=== PATIENT | male | born 1955 | race Caucasian/White ===

== ENCOUNTER 2020-06-26 14:53 | Inpatient (IN) | payer OTHER, BC, SELFPAY ==
[~2020-06-26] VITALS: Ht 167.6 cm; Wt 98.0 kg
[~2020-06-26 14:53] MED LIST: HYDR-1189 PO; LISI-219 PO; METF1000 PO; NOR10 PO; PRAV40TA63 PO; TAMS-11 PO
[2020-06-26 15:03] VITALS: BP_SYST 123
[2020-06-26] MEDS ORDERED: DULA1.5P SQ (15:33)
[2020-06-26] MEDS ORDERED: DOXA2TAB PO (15:33)
[2020-06-26] MEDS ORDERED: LISI-600 PO (15:33)
[2020-06-26] MEDS ORDERED: FLUT16SP16 NS (15:33)
[2020-06-26] MEDS ORDERED: LIP10 PO (15:33)
[2020-06-26] MEDS ORDERED: NEOM10SO7 EACH EAR (15:33)
[2020-06-26] MEDS ORDERED: PIOG30TA71 PO (15:33)
[2020-06-26] MEDS ORDERED: GLYB5TAB7 PO (15:33)
[2020-06-26] MEDS ORDERED: MYCOLOG15O TP (15:33)
[2020-06-26] MEDS ORDERED: cefTRIAXone 1 GM in D5W 50 ML IV ONE (16:30)
[2020-06-26] MEDS ORDERED: DEXAMETHASONE SOD PHOSPHATE 10 MG/ML VIAL IVP ONE (16:30)
[2020-06-26 16:49] LABS: HEMATOCRIT 42.5 % (36-54); HEMOGLOBIN 14.1 g/dL (14.0-18.0); MEAN CORPUSCULAR HEMOGLOBIN 31 pg (27-31); MEAN CORPUSCULAR HGB CONC 33 % (32-36); MEAN CORPUSCULAR VOLUME 93 fL (79.0-98.0); PLATELET COUNT (AUTO) 311 K/uL (130-430); RED BLOOD CELL COUNT(AUTO) 4.56 MIL/uL (4.2-6.2); RED CELL DISTRIBUTION WIDTH 13.3 % (9.0-15.0); WHITE BLOOD COUNT (AUTO) 8.3 K/uL (4.8-10.8)
[2020-06-26 16:50] LABS: BASOPHILS % (AUTO) 0.2 % (0.0-2.0); LYMPHOCYTES # (AUTO) 0.9 K/uL (1.0-5.5); MONOCYTES # (AUTO) 0.6 K/uL (0.0-1.0); MONOCYTES % (AUTO) 7.5 % (1.7-9.3); NEUTROPHILS # (AUTO) 6.8 K/uL (1.8-7.7); NEUTROPHILS % (AUTO) 81.3 % (40.0-70.0)
[2020-06-26 16:55] LABS: PROTHROMBIN TIME 9.8 SECS (9.5-12.5)
[2020-06-26 17:03] LABS: CALCIUM 8.3 mg/dL (8.4-11.0); CREATININE 1.64 mg/dL (0.55-1.30); POTASSIUM 3.7 mmol/L (3.5-5.1)
[2020-06-26 17:15] LABS: ALBUMIN 3.2 g/dL (3.4-4.8); TOTAL BILIRUBIN 0.4 mg/dL (0.0-1.0)
[2020-06-26] MEDS ORDERED: cefTRIAXone 1 GM VIAL ONE (17:47)
[2020-06-26] MEDS ORDERED: DEXAMETHASONE SOD PHOSPHATE 10 MG/ML VIAL ONE (17:48)
[2020-06-26 18:04] LABS: C-REACTIVE PROTEIN QUANT 15.9 mg/dL (0-0.5)
[2020-06-26] MEDS ORDERED: ACETAMINOPHEN 325 MG TABLET PO PRN (19:15)
[2020-06-26] MEDS ORDERED: PIPERACILLIN/TAZO 3.375/DEX-IS 50 ML IV ONE (19:45)
[2020-06-26] MEDS ORDERED: NYSTATIN/TRIAMCIN 15 GM TOPICAL OINTMENT TP SCH (21:00)
[2020-06-26] MEDS ORDERED: NEOMYCIN/POLYMYX B/HYDROCORTISONE 10 ML OTIC SOLUTION OT SCH (21:00)
[2020-06-26] MEDS: DOXAZOSIN MESYLATE 2 MG TABLET PO SCH (21:00)
[2020-06-26] MEDS: KCL 20 mEq in NS 1000 mL 1,000 ML IV SCH (23:28)
[2020-06-26] MEDS: DEXAMETHASONE SOD PHOSPHATE 10 MG/ML VIAL IVP SCH (23:29)
[2020-06-26] MEDS: ENOXAPARIN SODIUM 30 MG/0.3 ML SYRINGE SUBCUT SCH (23:30)
[2020-06-26] MEDS: INSULIN REGULAR, HUMAN 100 UNITS/ML, 10 ML VIAL (humuLIN R) SUBCUT PRN (23:48)
[2020-06-27] MEDS ORDERED: NACL 0.9% 1,000 ML IV ONE (00:45)
[2020-06-27] MEDS: PIPERACILLIN/TAZO 3.375/DEX-IS 50 ML IV SCH ×3 (03:07→12:06)
[2020-06-27 05:58] LABS: BASOPHILS % (AUTO) 0.2 % (0.0-2.0); HEMATOCRIT 41.7 % (36-54); HEMOGLOBIN 14.2 g/dL (14.0-18.0); LYMPHOCYTES # (AUTO) 1.9 K/uL (1.0-5.5); LYMPHOCYTES % (AUTO) 25.3 % (20.5-51.5); MEAN CORPUSCULAR HEMOGLOBIN 32 pg (27-31); MEAN CORPUSCULAR HGB CONC 34 % (32-36); MEAN CORPUSCULAR VOLUME 93 fL (79.0-98.0); MONOCYTES # (AUTO) 0.3 K/uL (0.0-1.0); MONOCYTES % (AUTO) 3.9 % (1.7-9.3); NEUTROPHILS # (AUTO) 5.3 K/uL (1.8-7.7); NEUTROPHILS % (AUTO) 70.6 % (40.0-70.0); PLATELET COUNT (AUTO) 319 K/uL (130-430); RED BLOOD CELL COUNT(AUTO) 4.48 MIL/uL (4.2-6.2); RED CELL DISTRIBUTION WIDTH 13.1 % (9.0-15.0); WHITE BLOOD COUNT (AUTO) 7.5 K/uL (4.8-10.8)
[2020-06-27 06:02] LABS: CREATININE 1.55 mg/dL (0.55-1.30); PHOSPHORUS 4.6 mg/dL (2.7-4.5); POTASSIUM 4.1 mmol/L (3.5-5.1)
[2020-06-27 07:19] LABS: C-REACTIVE PROTEIN QUANT 15.7 mg/dL (0-0.5)
[2020-06-27] MEDS: KCL 20 mEq in NS 1000 mL 1,000 ML IV SCH ×3 (07:20→21:06)
[2020-06-27 10:50] VITALS: BP_SYST 117
[2020-06-27 11:15] VITALS: BP_SYST 117
[2020-06-27] MEDS: amLODIPine BESYLATE 10 MG TABLET PO SCH (11:30)
[2020-06-27] MEDS: FLUTICASONE PROPIONATE 50 mCg/SPRAY 16 GM NS SCH (11:30)
[2020-06-27] MEDS: ATORVASTATIN 10 MG TABLET PO SCH (11:30)
[2020-06-27] MEDS: INSULIN REGULAR, HUMAN 100 UNITS/ML, 10 ML VIAL (humuLIN R) SUBCUT PRN ×3 (11:30→20:56)
[2020-06-27] MEDS: PIOGLITAZONE HCL 15 MG TABLET PO SCH (11:30)
[2020-06-27] MEDS ORDERED: PEG 400/HYPROMELLOSE/GLYCERIN 15 ML DROPS OP PRN (12:15)
[2020-06-27] MEDS ORDERED: FLU VACC QS2020-21(65UP)/PF 0.7 ML/SYRINGE I.M. PRN (13:30)
[2020-06-27 16:00] VITALS: BP_SYST 104
[2020-06-27] MEDS: cefTRIAXone 1 GM in D5W 50 ML IV SCH (18:00)
[2020-06-27 20:00] VITALS: BP_SYST 109
[2020-06-27] MEDS: AZITHROMYCIN 500 MG in NS 250 ML IV SCH (20:49)
[2020-06-27] MEDS: DEXAMETHASONE SOD PHOSPHATE 10 MG/ML VIAL IVP SCH (20:50)
[2020-06-27] MEDS: DOXAZOSIN MESYLATE 2 MG TABLET PO SCH (20:50)
[2020-06-27] MEDS: ALBUTEROL MDI INHALATION 8 GM INH INH PRN (20:52)
[2020-06-27] MEDS: ENOXAPARIN SODIUM 30 MG/0.3 ML SYRINGE SUBCUT SCH (21:00)
[2020-06-28] VITALS: BP_SYST 115
[2020-06-28 07:40] VITALS: BP_SYST 121
[2020-06-28] MEDS: INSULIN REGULAR, HUMAN 100 UNITS/ML, 10 ML VIAL (humuLIN R) SUBCUT PRN ×3 (07:45→17:54)
[2020-06-28] MEDS ORDERED: glyBURIDE 5 MG TABLET PO ONE (08:00)
[2020-06-28] MEDS: ATORVASTATIN 10 MG TABLET PO SCH (09:09)
[2020-06-28] MEDS: amLODIPine BESYLATE 10 MG TABLET PO SCH (09:09)
[2020-06-28] MEDS: PIOGLITAZONE HCL 15 MG TABLET PO SCH (09:09)
[2020-06-28] MEDS: FLUTICASONE PROPIONATE 50 mCg/SPRAY 16 GM NS SCH (09:09)
[2020-06-28] MEDS: KCL 20 mEq in NS 1000 mL 1,000 ML IV SCH ×2 (10:00→18:57)
[2020-06-28 12:00] VITALS: BP_SYST 121
[2020-06-28 16:00] VITALS: BP_SYST 112
[2020-06-28] MEDS: cefTRIAXone 1 GM in D5W 50 ML IV SCH (17:46)
[2020-06-28] MEDS: glyBURIDE 5 MG TABLET PO SCH (17:54)
[2020-06-28] MEDS: AZITHROMYCIN 500 MG in NS 250 ML IV SCH (18:57)
[2020-06-28 20:00] VITALS: BP_SYST 115
[2020-06-28] MEDS: DEXAMETHASONE SOD PHOSPHATE 10 MG/ML VIAL IVP SCH ×2 (21:43→22:54)
[2020-06-28] MEDS: DOXAZOSIN MESYLATE 2 MG TABLET PO SCH (22:00)
[2020-06-28] MEDS: ENOXAPARIN SODIUM 30 MG/0.3 ML SYRINGE SUBCUT SCH (22:00)
[2020-06-29] VITALS: BP_SYST 127
[2020-06-29] MEDS: INSULIN REGULAR, HUMAN 100 UNITS/ML, 10 ML VIAL (humuLIN R) SUBCUT PRN ×3 (06:35→16:56)
[2020-06-29 06:36] LABS: BASOPHILS % (AUTO) 0.1 % (0.0-2.0); HEMATOCRIT 37.5 % (36-54); HEMOGLOBIN 12.8 g/dL (14.0-18.0); LYMPHOCYTES # (AUTO) 0.6 K/uL (1.0-5.5); MEAN CORPUSCULAR HEMOGLOBIN 32 pg (27-31); MEAN CORPUSCULAR HGB CONC 34 % (32-36); MEAN CORPUSCULAR VOLUME 92 fL (79.0-98.0); MONOCYTES # (AUTO) 0.5 K/uL (0.0-1.0); MONOCYTES % (AUTO) 5.1 % (1.7-9.3); NEUTROPHILS # (AUTO) 9.5 K/uL (1.8-7.7); NEUTROPHILS % (AUTO) 88.8 % (40.0-70.0); PLATELET COUNT (AUTO) 337 K/uL (130-430); RED BLOOD CELL COUNT(AUTO) 4.07 MIL/uL (4.2-6.2); RED CELL DISTRIBUTION WIDTH 13.2 % (9.0-15.0); WHITE BLOOD COUNT (AUTO) 10.7 K/uL (4.8-10.8)
[2020-06-29 06:54] LABS: ALBUMIN 2.5 g/dL (3.4-4.8); CALCIUM 7.8 mg/dL (8.4-11.0); CREATININE 1.14 mg/dL (0.55-1.30); POTASSIUM 4.8 mmol/L (3.5-5.1); TOTAL BILIRUBIN 0.5 mg/dL (0.0-1.0)
[2020-06-29 08:00] VITALS: BP_SYST 128; BP_SYST 148
[2020-06-29] MEDS: PIOGLITAZONE HCL 15 MG TABLET PO SCH (08:46)
[2020-06-29] MEDS: glyBURIDE 5 MG TABLET PO SCH ×2 (08:46→17:15)
[2020-06-29] MEDS: amLODIPine BESYLATE 10 MG TABLET PO SCH (08:47)
[2020-06-29] MEDS: FLUTICASONE PROPIONATE 50 mCg/SPRAY 16 GM NS SCH (08:47)
[2020-06-29] MEDS: ATORVASTATIN 10 MG TABLET PO SCH (08:47)
[2020-06-29] MEDS: KCL 20 mEq in NS 1000 mL 1,000 ML IV SCH (11:39)
[2020-06-29 12:15] VITALS: BP_SYST 144
[2020-06-29] MEDS: ALBUTEROL MDI INHALATION 8 GM INH INH PRN (13:43)
[2020-06-29 16:15] VITALS: BP_SYST 132
[2020-06-29] MEDS: cefTRIAXone 1 GM in D5W 50 ML IV SCH (16:55)
[2020-06-29] MEDS: AZITHROMYCIN 500 MG in NS 250 ML IV SCH (17:15)
[2020-06-29 20:00] VITALS: BP_SYST 137
[2020-06-29] MEDS: ENOXAPARIN SODIUM 30 MG/0.3 ML SYRINGE SUBCUT SCH (21:43)
[2020-06-29] MEDS: DOXAZOSIN MESYLATE 2 MG TABLET PO SCH (21:43)
[2020-06-29 22:51] VITALS: BP_SYST 132
[2020-06-30] VITALS: BP_SYST 138
[2020-06-30] MEDS: INSULIN REGULAR, HUMAN 100 UNITS/ML, 10 ML VIAL (humuLIN R) SUBCUT PRN ×4 (06:40→20:50)
[2020-06-30 08:00] VITALS: BP_SYST 114
[2020-06-30] MEDS: KCL 20 mEq in NS 1000 mL 1,000 ML IV SCH ×2 (08:47→15:20)
[2020-06-30] MEDS: FLUTICASONE PROPIONATE 50 mCg/SPRAY 16 GM NS SCH (08:47)
[2020-06-30] MEDS: glyBURIDE 5 MG TABLET PO SCH ×2 (08:47→18:12)
[2020-06-30] MEDS: ATORVASTATIN 10 MG TABLET PO SCH (08:47)
[2020-06-30] MEDS: PIOGLITAZONE HCL 15 MG TABLET PO SCH (08:47)
[2020-06-30 10:11] LABS: BASOPHILS % (AUTO) 0.2 % (0.0-2.0); HEMATOCRIT 38.9 % (36-54); HEMOGLOBIN 12.9 g/dL (14.0-18.0); LYMPHOCYTES # (AUTO) 0.8 K/uL (1.0-5.5); LYMPHOCYTES % (AUTO) 5.9 % (20.5-51.5); MEAN CORPUSCULAR HEMOGLOBIN 31 pg (27-31); MEAN CORPUSCULAR HGB CONC 33 % (32-36); MEAN CORPUSCULAR VOLUME 93 fL (79.0-98.0); MONOCYTES # (AUTO) 0.7 K/uL (0.0-1.0); NEUTROPHILS % (AUTO) 88.9 % (40.0-70.0); PLATELET COUNT (AUTO) 367 K/uL (130-430); RED BLOOD CELL COUNT(AUTO) 4.16 MIL/uL (4.2-6.2); RED CELL DISTRIBUTION WIDTH 13.3 % (9.0-15.0); WHITE BLOOD COUNT (AUTO) 13.5 K/uL (4.8-10.8)
[2020-06-30] MEDS: amLODIPine BESYLATE 10 MG TABLET PO SCH (10:18)
[2020-06-30 10:28] LABS: ALBUMIN 2.5 g/dL (3.4-4.8); CALCIUM 8.1 mg/dL (8.4-11.0); CREATININE 1.15 mg/dL (0.55-1.30); POTASSIUM 4.7 mmol/L (3.5-5.1); TOTAL BILIRUBIN 0.5 mg/dL (0.0-1.0)
[2020-06-30 10:45] LABS: C-REACTIVE PROTEIN QUANT 22.4 mg/dL (0-0.5)
[2020-06-30 13:26] VITALS: BP_SYST 137
[2020-06-30 16:05] VITALS: BP_SYST 125
[2020-06-30] MEDS: cefTRIAXone 1 GM in D5W 50 ML IV SCH (17:19)
[2020-06-30] MEDS: DEXAMETHASONE SOD PHOSPHATE 10 MG/ML VIAL IVP SCH (18:12)
[2020-06-30] MEDS: AZITHROMYCIN 500 MG in NS 250 ML IV SCH ×2 (19:05→20:30)
[2020-06-30 20:00] VITALS: BP_SYST 113
[2020-06-30] MEDS: ENOXAPARIN SODIUM 30 MG/0.3 ML SYRINGE SUBCUT SCH (20:50)
[2020-06-30] MEDS: DOXAZOSIN MESYLATE 2 MG TABLET PO SCH (20:50)
[2020-06-30] MEDS: BUDESONIDE 0.5 MG/2 ML AMPUL.NEB INH SCH (21:00)
[2020-07-01] VITALS: BP_SYST 141
[2020-07-01] MEDS: KCL 20 mEq in NS 1000 mL 1,000 ML IV SCH ×2 (04:40→22:30)
[2020-07-01] MEDS: INSULIN REGULAR, HUMAN 100 UNITS/ML, 10 ML VIAL (humuLIN R) SUBCUT PRN ×4 (06:57→21:04)
[2020-07-01 07:11] LABS: BASOPHILS % (AUTO) 0.2 % (0.0-2.0); HEMATOCRIT 38.5 % (36-54); HEMOGLOBIN 12.9 g/dL (14.0-18.0); LYMPHOCYTES # (AUTO) 0.6 K/uL (1.0-5.5); LYMPHOCYTES % (AUTO) 5.2 % (20.5-51.5); MEAN CORPUSCULAR HEMOGLOBIN 31 pg (27-31); MEAN CORPUSCULAR HGB CONC 34 % (32-36); MEAN CORPUSCULAR VOLUME 93 fL (79.0-98.0); MONOCYTES # (AUTO) 0.6 K/uL (0.0-1.0); MONOCYTES % (AUTO) 5.3 % (1.7-9.3); NEUTROPHILS # (AUTO) 10.3 K/uL (1.8-7.7); PLATELET COUNT (AUTO) 397 K/uL (130-430); RED BLOOD CELL COUNT(AUTO) 4.14 MIL/uL (4.2-6.2); RED CELL DISTRIBUTION WIDTH 13.3 % (9.0-15.0); WHITE BLOOD COUNT (AUTO) 11.6 K/uL (4.8-10.8)
[2020-07-01 07:13] LABS: ALBUMIN 2.4 g/dL (3.4-4.8); CALCIUM 8.4 mg/dL (8.4-11.0); CREATININE 0.96 mg/dL (0.55-1.30); POTASSIUM 4.4 mmol/L (3.5-5.1); TOTAL BILIRUBIN 0.6 mg/dL (0.0-1.0)
[2020-07-01 08:00] VITALS: BP_SYST 110; BP_SYST 160
[2020-07-01] MEDS: ALBUTEROL MDI INHALATION 8 GM INH INH PRN (08:27)
[2020-07-01] MEDS: PIOGLITAZONE HCL 15 MG TABLET PO SCH (08:45)
[2020-07-01] MEDS: ATORVASTATIN 10 MG TABLET PO SCH (08:45)
[2020-07-01] MEDS: FLUTICASONE PROPIONATE 50 mCg/SPRAY 16 GM NS SCH (08:45)
[2020-07-01] MEDS: glyBURIDE 5 MG TABLET PO SCH ×2 (08:45→18:19)
[2020-07-01] MEDS: amLODIPine BESYLATE 10 MG TABLET PO SCH (08:46)
[2020-07-01 15:11] LABS: NEUTROPHILS % (AUTO) 89.3 % (40.0-70.0)
[2020-07-01] MEDS: cefTRIAXone 1 GM in D5W 50 ML IV SCH (17:14)
[2020-07-01 20:45] VITALS: BP_SYST 119
[2020-07-01] MEDS: ENOXAPARIN SODIUM 30 MG/0.3 ML SYRINGE SUBCUT SCH (21:00)
[2020-07-01] MEDS: DOXAZOSIN MESYLATE 2 MG TABLET PO SCH (21:04)
[2020-07-01] MEDS: DEXAMETHASONE SOD PHOSPHATE 10 MG/ML VIAL IVP SCH (22:30)
[2020-07-01] MEDS: AZITHROMYCIN 500 MG in NS 250 ML IV SCH (23:45)
[2020-07-02] VITALS: BP_SYST 108
[2020-07-02] MEDS: KCL 20 mEq in NS 1000 mL 1,000 ML IV SCH ×2 (07:20→20:40)
[2020-07-02] MEDS: INSULIN REGULAR, HUMAN 100 UNITS/ML, 10 ML VIAL (humuLIN R) SUBCUT PRN ×4 (07:24→21:00)
[2020-07-02 08:00] VITALS: BP_SYST 131
[2020-07-02 08:38] LABS: ALBUMIN 2.4 g/dL (3.4-4.8); CALCIUM 8.5 mg/dL (8.4-11.0); CREATININE 0.95 mg/dL (0.55-1.30); POTASSIUM 4.4 mmol/L (3.5-5.1); TOTAL BILIRUBIN 0.6 mg/dL (0.0-1.0)
[2020-07-02] MEDS: amLODIPine BESYLATE 10 MG TABLET PO SCH (08:55)
[2020-07-02] MEDS: PIOGLITAZONE HCL 15 MG TABLET PO SCH (08:55)
[2020-07-02] MEDS: glyBURIDE 5 MG TABLET PO SCH ×2 (08:55→18:29)
[2020-07-02] MEDS: ATORVASTATIN 10 MG TABLET PO SCH (08:55)
[2020-07-02] MEDS: FLUTICASONE PROPIONATE 50 mCg/SPRAY 16 GM NS SCH (08:55)
[2020-07-02 11:47] VITALS: BP_SYST 148
[2020-07-02 14:10] VITALS: BP_SYST 148
[2020-07-02 16:24] VITALS: BP_SYST 147
[2020-07-02] MEDS: DEXAMETHASONE SOD PHOSPHATE 10 MG/ML VIAL IVP SCH (18:29)
[2020-07-02] MEDS: cefTRIAXone 1 GM in D5W 50 ML IV SCH (19:45)
[2020-07-02 20:00] VITALS: BP_SYST 131
[2020-07-02] MEDS: DOXAZOSIN MESYLATE 2 MG TABLET PO SCH (21:00)
[2020-07-02] MEDS: ENOXAPARIN SODIUM 30 MG/0.3 ML SYRINGE SUBCUT SCH (21:00)
[2020-07-03] VITALS: BP_SYST 122
[2020-07-03] MEDS: INSULIN REGULAR, HUMAN 100 UNITS/ML, 10 ML VIAL (humuLIN R) SUBCUT PRN ×3 (07:34→22:30)
[2020-07-03 07:40] VITALS: BP_SYST 153
[2020-07-03] MEDS: glyBURIDE 5 MG TABLET PO SCH ×2 (08:51→18:30)
[2020-07-03] MEDS: CHOLECALCIFEROL (VITAMIN D3) 5,000 UNIT TABLET PO SCH (08:51)
[2020-07-03] MEDS: FLUTICASONE PROPIONATE 50 mCg/SPRAY 16 GM NS SCH (08:51)
[2020-07-03] MEDS: ATORVASTATIN 10 MG TABLET PO SCH (08:51)
[2020-07-03] MEDS: amLODIPine BESYLATE 10 MG TABLET PO SCH (08:52)
[2020-07-03] MEDS: PIOGLITAZONE HCL 15 MG TABLET PO SCH (08:52)
[2020-07-03] MEDS: BUDESONIDE 0.5 MG/2 ML AMPUL.NEB INH SCH (09:00)
[2020-07-03 09:21] LABS: ALBUMIN 2.4 g/dL (3.4-4.8); BILIRUBIN,DIRECT 0.2 mg/dL (0.0-0.3); C-REACTIVE PROTEIN QUANT 8.1 mg/dL (0-0.5); TOTAL BILIRUBIN 0.6 mg/dL (0.0-1.0)
[2020-07-03 12:05] VITALS: BP_SYST 148
[2020-07-03] MEDS: KCL 20 mEq in NS 1000 mL 1,000 ML IV SCH ×2 (12:29→23:20)
[2020-07-03 13:09] LABS: ALBUMIN 2.5 g/dL (3.4-4.8); CALCIUM 8.8 mg/dL (8.4-11.0); CREATININE 0.98 mg/dL (0.55-1.30); POTASSIUM 3.9 mmol/L (3.5-5.1); TOTAL BILIRUBIN 0.6 mg/dL (0.0-1.0)
[2020-07-03 16:00] VITALS: BP_SYST 142
[2020-07-03] MEDS: cefTRIAXone 1 GM in D5W 50 ML IV SCH (17:00)
[2020-07-03 20:00] VITALS: BP_SYST 118
[2020-07-03] MEDS: DEXAMETHASONE SOD PHOSPHATE 10 MG/ML VIAL IVP SCH (20:02)
[2020-07-03] MEDS: DOXAZOSIN MESYLATE 2 MG TABLET PO SCH (22:30)
[2020-07-03] MEDS: ENOXAPARIN SODIUM 30 MG/0.3 ML SYRINGE SUBCUT SCH (22:30)
[2020-07-04 01:54] VITALS: BP_SYST 131
[2020-07-04] MEDS: INSULIN REGULAR, HUMAN 100 UNITS/ML, 10 ML VIAL (humuLIN R) SUBCUT PRN ×2 (07:02→18:08)
[2020-07-04 08:20] LABS: BASOPHILS % (AUTO) 0.2 % (0.0-2.0); HEMATOCRIT 39.9 % (36-54); HEMOGLOBIN 13.2 g/dL (14.0-18.0); LYMPHOCYTES # (AUTO) 0.4 K/uL (1.0-5.5); LYMPHOCYTES % (AUTO) 3.7 % (20.5-51.5); MEAN CORPUSCULAR HEMOGLOBIN 31 pg (27-31); MEAN CORPUSCULAR HGB CONC 33 % (32-36); MEAN CORPUSCULAR VOLUME 92 fL (79.0-98.0); MONOCYTES # (AUTO) 0.5 K/uL (0.0-1.0); MONOCYTES % (AUTO) 4.1 % (1.7-9.3); NEUTROPHILS # (AUTO) 10.8 K/uL (1.8-7.7); PLATELET COUNT (AUTO) 280 K/uL (130-430); RED BLOOD CELL COUNT(AUTO) 4.34 MIL/uL (4.2-6.2); RED CELL DISTRIBUTION WIDTH 13.1 % (9.0-15.0); WHITE BLOOD COUNT (AUTO) 11.7 K/uL (4.8-10.8)
[2020-07-04 08:35] LABS: ALBUMIN 2.4 g/dL (3.4-4.8); CALCIUM 8.2 mg/dL (8.4-11.0); CREATININE 1.03 mg/dL (0.55-1.30); POTASSIUM 4.3 mmol/L (3.5-5.1); TOTAL BILIRUBIN 0.5 mg/dL (0.0-1.0)
[2020-07-04] MEDS: FLUTICASONE PROPIONATE 50 mCg/SPRAY 16 GM NS SCH (09:00)
[2020-07-04 09:12] LABS: C-REACTIVE PROTEIN QUANT 7.7 mg/dL (0-0.5)
[2020-07-04 10:42] VITALS: BP_SYST 136
[2020-07-04] MEDS: PIOGLITAZONE HCL 15 MG TABLET PO SCH (11:00)
[2020-07-04] MEDS: amLODIPine BESYLATE 10 MG TABLET PO SCH (11:00)
[2020-07-04] MEDS: CHOLECALCIFEROL (VITAMIN D3) 5,000 UNIT TABLET PO SCH (11:00)
[2020-07-04] MEDS: glyBURIDE 5 MG TABLET PO SCH ×2 (11:00→18:03)
[2020-07-04] MEDS: ATORVASTATIN 10 MG TABLET PO SCH (11:00)
[2020-07-04 12:52] VITALS: BP_SYST 132
[2020-07-04 16:13] VITALS: BP_SYST 119
[2020-07-04] MEDS: KCL 20 mEq in NS 1000 mL 1,000 ML IV SCH (18:03)
[2020-07-04] MEDS: cefTRIAXone 1 GM in D5W 50 ML IV SCH (18:03)
[2020-07-04 20:00] VITALS: BP_SYST 130
[2020-07-04] MEDS: DEXAMETHASONE SOD PHOSPHATE 10 MG/ML VIAL IVP SCH (22:13)
[2020-07-04] MEDS: DOXAZOSIN MESYLATE 2 MG TABLET PO SCH (22:30)
[2020-07-04] MEDS: ENOXAPARIN SODIUM 30 MG/0.3 ML SYRINGE SUBCUT SCH (22:31)
[2020-07-05] VITALS (7 sets, daily range): BP systolic 93–132
[2020-07-05] MEDS: KCL 20 mEq in NS 1000 mL 1,000 ML IV SCH ×2 (02:00→15:58)
[2020-07-05] MEDS: INSULIN REGULAR, HUMAN 100 UNITS/ML, 10 ML VIAL (humuLIN R) SUBCUT PRN ×2 (07:19→13:54)
[2020-07-05 07:59] LABS: CALCIUM 7.4 mg/dL (8.4-11.0); CREATININE 0.88 mg/dL (0.55-1.30); POTASSIUM 4.7 mmol/L (3.5-5.1); TOTAL BILIRUBIN 0.7 mg/dL (0.0-1.0)
[2020-07-05] MEDS: ATORVASTATIN 10 MG TABLET PO SCH (08:45)
[2020-07-05] MEDS: CHOLECALCIFEROL (VITAMIN D3) 5,000 UNIT TABLET PO SCH (08:45)
[2020-07-05] MEDS: glyBURIDE 5 MG TABLET PO SCH ×2 (08:45→18:52)
[2020-07-05] MEDS: PIOGLITAZONE HCL 15 MG TABLET PO SCH (08:45)
[2020-07-05] MEDS: FLUTICASONE PROPIONATE 50 mCg/SPRAY 16 GM NS SCH (08:45)
[2020-07-05] MEDS: amLODIPine BESYLATE 10 MG TABLET PO SCH (08:59)
[2020-07-05] MEDS: BUDESONIDE 0.5 MG/2 ML AMPUL.NEB INH SCH (09:00)
[2020-07-05] MEDS: cefTRIAXone 1 GM in D5W 50 ML IV SCH (18:20)
[2020-07-05] MEDS: DEXAMETHASONE SOD PHOSPHATE 10 MG/ML VIAL IVP SCH (20:34)
[2020-07-05] MEDS: DOXAZOSIN MESYLATE 2 MG TABLET PO SCH (20:34)
[2020-07-05] MEDS: ENOXAPARIN SODIUM 30 MG/0.3 ML SYRINGE SUBCUT SCH (20:36)
[2020-07-06] MEDS: KCL 20 mEq in NS 1000 mL 1,000 ML IV SCH ×2 (04:13→17:32)
[2020-07-06] MEDS: INSULIN REGULAR, HUMAN 100 UNITS/ML, 10 ML VIAL (humuLIN R) SUBCUT PRN ×2 (06:05→17:23)
[2020-07-06] MEDS: PIOGLITAZONE HCL 15 MG TABLET PO SCH (09:30)
[2020-07-06] MEDS: glyBURIDE 5 MG TABLET PO SCH ×2 (09:30→17:26)
[2020-07-06] MEDS: FLUTICASONE PROPIONATE 50 mCg/SPRAY 16 GM NS SCH (09:30)
[2020-07-06] MEDS: ATORVASTATIN 10 MG TABLET PO SCH (09:30)
[2020-07-06] MEDS: amLODIPine BESYLATE 10 MG TABLET PO SCH (09:30)
[2020-07-06] MEDS: CHOLECALCIFEROL (VITAMIN D3) 5,000 UNIT TABLET PO SCH (09:30)
[2020-07-06 12:00] VITALS: BP_SYST 133
[2020-07-06] MEDS: cefTRIAXone 1 GM in D5W 50 ML IV SCH (17:22)
[2020-07-06] MEDS: DEXAMETHASONE SOD PHOSPHATE 10 MG/ML VIAL IVP SCH (19:30)
[2020-07-06 20:00] VITALS: BP_SYST 115
[2020-07-06] MEDS: ENOXAPARIN SODIUM 30 MG/0.3 ML SYRINGE SUBCUT SCH (21:00)
[2020-07-06] MEDS: DOXAZOSIN MESYLATE 2 MG TABLET PO SCH (21:00)
[2020-07-07] VITALS: BP_SYST 124
[2020-07-07] MEDS: INSULIN REGULAR, HUMAN 100 UNITS/ML, 10 ML VIAL (humuLIN R) SUBCUT PRN ×3 (06:55→17:37)
[2020-07-07] MEDS: KCL 20 mEq in NS 1000 mL 1,000 ML IV SCH ×2 (07:20→20:40)
[2020-07-07 08:00] VITALS: BP_SYST 123
[2020-07-07] MEDS: PIOGLITAZONE HCL 15 MG TABLET PO SCH (08:42)
[2020-07-07] MEDS: glyBURIDE 5 MG TABLET PO SCH ×2 (08:42→18:46)
[2020-07-07] MEDS: ATORVASTATIN 10 MG TABLET PO SCH (08:42)
[2020-07-07] MEDS: amLODIPine BESYLATE 10 MG TABLET PO SCH (08:42)
[2020-07-07] MEDS: FLUTICASONE PROPIONATE 50 mCg/SPRAY 16 GM NS SCH (08:42)
[2020-07-07] MEDS: CHOLECALCIFEROL (VITAMIN D3) 5,000 UNIT TABLET PO SCH (08:42)
[2020-07-07 12:15] VITALS: BP_SYST 145
[2020-07-07 16:00] VITALS: BP_SYST 136
[2020-07-07] MEDS: cefTRIAXone 1 GM in D5W 50 ML IV SCH (16:50)
[2020-07-07] MEDS: DEXAMETHASONE SOD PHOSPHATE 10 MG/ML VIAL IVP SCH (18:46)
[2020-07-07] MEDS: BUDESONIDE 0.5 MG/2 ML AMPUL.NEB INH SCH (20:56)
[2020-07-07] MEDS: DOXAZOSIN MESYLATE 2 MG TABLET PO SCH (21:00)
[2020-07-07] MEDS: ENOXAPARIN SODIUM 30 MG/0.3 ML SYRINGE SUBCUT SCH (21:00)
[2020-07-08] VITALS: BP_SYST 132
[2020-07-08] MEDS: INSULIN REGULAR, HUMAN 100 UNITS/ML, 10 ML VIAL (humuLIN R) SUBCUT PRN ×3 (06:50→17:51)
[2020-07-08 08:00] VITALS: BP_SYST 140
[2020-07-08] MEDS: glyBURIDE 5 MG TABLET PO SCH ×2 (09:06→17:50)
[2020-07-08] MEDS: CHOLECALCIFEROL (VITAMIN D3) 5,000 UNIT TABLET PO SCH (09:07)
[2020-07-08] MEDS: KCL 20 mEq in NS 1000 mL 1,000 ML IV SCH ×2 (09:07→23:54)
[2020-07-08] MEDS: FLUTICASONE PROPIONATE 50 mCg/SPRAY 16 GM NS SCH (09:07)
[2020-07-08] MEDS: ATORVASTATIN 10 MG TABLET PO SCH (09:07)
[2020-07-08] MEDS: PIOGLITAZONE HCL 15 MG TABLET PO SCH (09:07)
[2020-07-08] MEDS: amLODIPine BESYLATE 10 MG TABLET PO SCH (09:07)
[2020-07-08 12:10] VITALS: BP_SYST 129
[2020-07-08 16:00] VITALS: BP_SYST 121
[2020-07-08] MEDS: cefTRIAXone 1 GM in D5W 50 ML IV SCH (17:50)
[2020-07-08] MEDS: DEXAMETHASONE SOD PHOSPHATE 10 MG/ML VIAL IVP SCH (19:30)
[2020-07-08 20:00] VITALS: BP_SYST 127
[2020-07-08] MEDS: ENOXAPARIN SODIUM 30 MG/0.3 ML SYRINGE SUBCUT SCH (21:00)
[2020-07-08] MEDS: BUDESONIDE 0.5 MG/2 ML AMPUL.NEB INH SCH (21:00)
[2020-07-08] MEDS: DOXAZOSIN MESYLATE 2 MG TABLET PO SCH (21:00)
[2020-07-09] VITALS (7 sets, daily range): BP systolic 123–142
[2020-07-09] MEDS: INSULIN REGULAR, HUMAN 100 UNITS/ML, 10 ML VIAL (humuLIN R) SUBCUT PRN ×3 (07:38→16:16)
[2020-07-09] MEDS: FLUTICASONE PROPIONATE 50 mCg/SPRAY 16 GM NS SCH (08:46)
[2020-07-09] MEDS: CHOLECALCIFEROL (VITAMIN D3) 5,000 UNIT TABLET PO SCH (08:46)
[2020-07-09] MEDS: PIOGLITAZONE HCL 15 MG TABLET PO SCH (08:47)
[2020-07-09] MEDS: ATORVASTATIN 10 MG TABLET PO SCH (08:54)
[2020-07-09] MEDS: amLODIPine BESYLATE 10 MG TABLET PO SCH (08:55)
[2020-07-09] MEDS: glyBURIDE 5 MG TABLET PO SCH ×2 (08:56→17:28)
[2020-07-09] MEDS: BUDESONIDE 0.5 MG/2 ML AMPUL.NEB INH SCH (09:00)
[2020-07-09] MEDS: ALBUTEROL MDI INHALATION 8 GM INH INH PRN (13:16)
[2020-07-09] MEDS: KCL 20 mEq in NS 1000 mL 1,000 ML IV SCH (14:03)
[2020-07-09] MEDS: cefTRIAXone 1 GM in D5W 50 ML IV SCH (17:28)
[2020-07-09] MEDS: DEXAMETHASONE SOD PHOSPHATE 10 MG/ML VIAL IVP SCH (19:30)
[2020-07-09] MEDS: ENOXAPARIN SODIUM 30 MG/0.3 ML SYRINGE SUBCUT SCH (21:00)
[2020-07-09] MEDS: DOXAZOSIN MESYLATE 2 MG TABLET PO SCH (21:00)
[2020-07-10] MEDS: KCL 20 mEq in NS 1000 mL 1,000 ML IV SCH ×2 (02:00→17:54)
[2020-07-10 02:34] VITALS: BP_SYST 139
[2020-07-10] MEDS: CHOLECALCIFEROL (VITAMIN D3) 5,000 UNIT TABLET PO SCH (08:40)
[2020-07-10] MEDS: ATORVASTATIN 10 MG TABLET PO SCH (08:40)
[2020-07-10] MEDS: FLUTICASONE PROPIONATE 50 mCg/SPRAY 16 GM NS SCH (08:41)
[2020-07-10 08:55] VITALS: BP_SYST 121
[2020-07-10] MEDS: amLODIPine BESYLATE 10 MG TABLET PO SCH (08:55)
[2020-07-10] MEDS: glyBURIDE 5 MG TABLET PO SCH ×2 (08:55→18:03)
[2020-07-10] MEDS: PIOGLITAZONE HCL 15 MG TABLET PO SCH (08:55)
[2020-07-10] MEDS: INSULIN REGULAR, HUMAN 100 UNITS/ML, 10 ML VIAL (humuLIN R) SUBCUT PRN (11:45)
[2020-07-10 12:26] VITALS: BP_SYST 127
[2020-07-10 16:00] VITALS: BP_SYST 128
[2020-07-10] MEDS: cefTRIAXone 1 GM in D5W 50 ML IV SCH (17:58)
[2020-07-10] MEDS: DEXAMETHASONE SOD PHOSPHATE 10 MG/ML VIAL IVP SCH (20:00)
[2020-07-10 20:50] VITALS: BP_SYST 125
[2020-07-10] MEDS: DOXAZOSIN MESYLATE 2 MG TABLET PO SCH (21:24)
[2020-07-10] MEDS: ENOXAPARIN SODIUM 30 MG/0.3 ML SYRINGE SUBCUT SCH (21:27)
[2020-07-11] VITALS: BP_SYST 140
[2020-07-11] MEDS: KCL 20 mEq in NS 1000 mL 1,000 ML IV SCH (05:05)
[2020-07-11] MEDS: INSULIN REGULAR, HUMAN 100 UNITS/ML, 10 ML VIAL (humuLIN R) SUBCUT PRN (06:29)
[2020-07-11 08:30] VITALS: BP_SYST 116
[2020-07-11] MEDS: BUDESONIDE 0.5 MG/2 ML AMPUL.NEB INH SCH (09:00)
[2020-07-11] MEDS: ATORVASTATIN 10 MG TABLET PO SCH (09:38)
[2020-07-11] MEDS: FLUTICASONE PROPIONATE 50 mCg/SPRAY 16 GM NS SCH (09:38)
[2020-07-11] MEDS: glyBURIDE 5 MG TABLET PO SCH ×2 (09:39→18:54)
[2020-07-11] MEDS: CHOLECALCIFEROL (VITAMIN D3) 5,000 UNIT TABLET PO SCH (09:40)
[2020-07-11] MEDS: PIOGLITAZONE HCL 15 MG TABLET PO SCH (09:40)
[2020-07-11 12:30] VITALS: BP_SYST 126
[2020-07-11 12:59] LABS: INR 1.1 (0.80-1.20); PROTHROMBIN TIME 11.1 SECS (9.5-12.5)
[2020-07-11 17:08] VITALS: BP_SYST 143
[2020-07-11] MEDS: amLODIPine BESYLATE 10 MG TABLET PO SCH (18:52)
[2020-07-11] MEDS: cefTRIAXone 1 GM in D5W 50 ML IV SCH (18:53)
[2020-07-11 20:00] VITALS: BP_SYST 111
[2020-07-11] MEDS: DOXAZOSIN MESYLATE 2 MG TABLET PO SCH (21:07)
[2020-07-11] MEDS: methylPREDNISolone SOD SUCC 40 MG/ML VIAL IVP SCH (21:07)
[2020-07-11] MEDS: ENOXAPARIN SODIUM 30 MG/0.3 ML SYRINGE SUBCUT SCH (21:08)
[2020-07-12] VITALS (11 sets, daily range): BP systolic 85–155
[2020-07-12] MEDS: INSULIN REGULAR, HUMAN 100 UNITS/ML, 10 ML VIAL (humuLIN R) SUBCUT PRN ×3 (05:58→21:08)
[2020-07-12 07:52] LABS: BASOPHILS % (AUTO) 0.1 % (0.0-2.0); HEMATOCRIT 36.5 % (36-54); HEMOGLOBIN 12.2 g/dL (14.0-18.0); LYMPHOCYTES # (AUTO) 0.2 K/uL (1.0-5.5); LYMPHOCYTES % (AUTO) 1.7 % (20.5-51.5); MEAN CORPUSCULAR HEMOGLOBIN 31 pg (27-31); MEAN CORPUSCULAR HGB CONC 34 % (32-36); MEAN CORPUSCULAR VOLUME 92 fL (79.0-98.0); MONOCYTES # (AUTO) 0.2 K/uL (0.0-1.0); MONOCYTES % (AUTO) 1.5 % (1.7-9.3); NEUTROPHILS # (AUTO) 12.9 K/uL (1.8-7.7); NEUTROPHILS % (AUTO) 96.7 % (40.0-70.0); PLATELET COUNT (AUTO) 150 K/uL (130-430); RED BLOOD CELL COUNT(AUTO) 3.96 MIL/uL (4.2-6.2); RED CELL DISTRIBUTION WIDTH 13.4 % (9.0-15.0); WHITE BLOOD COUNT (AUTO) 13.4 K/uL (4.8-10.8)
[2020-07-12 08:07] LABS: CREATININE 0.95 mg/dL (0.55-1.30); POTASSIUM 5.3 mmol/L (3.5-5.1); TOTAL BILIRUBIN 0.6 mg/dL (0.0-1.0)
[2020-07-12] MEDS: KCL 20 mEq in NS 1000 mL 1,000 ML IV SCH ×2 (08:30→21:06)
[2020-07-12] MEDS: FLUTICASONE PROPIONATE 50 mCg/SPRAY 16 GM NS SCH (08:30)
[2020-07-12] MEDS: glyBURIDE 5 MG TABLET PO SCH (08:30)
[2020-07-12] MEDS: PIOGLITAZONE HCL 15 MG TABLET PO SCH (08:30)
[2020-07-12] MEDS: amLODIPine BESYLATE 10 MG TABLET PO SCH (08:30)
[2020-07-12] MEDS: ATORVASTATIN 10 MG TABLET PO SCH (08:30)
[2020-07-12] MEDS: methylPREDNISolone SOD SUCC 40 MG/ML VIAL IVP SCH ×2 (08:30→21:06)
[2020-07-12] MEDS: CHOLECALCIFEROL (VITAMIN D3) 5,000 UNIT TABLET PO SCH (08:30)
[2020-07-12] MEDS: cefTRIAXone 1 GM in D5W 50 ML IV SCH (17:20)
[2020-07-12] MEDS ORDERED: LORazepam 2 MG/ML VIAL ONE (17:37)
[2020-07-12] MEDS ORDERED: LORazepam 2 MG/ML VIAL IVP PRN (17:45)
[2020-07-12] MEDS ORDERED: PROPOFOL 200MG/ 20ML VIAL (DIPRIVAN) IV SCH (17:45)
[2020-07-12] MEDS ORDERED: COMMUNICATION ORDER XX ONE (20:45)
[2020-07-12] MEDS ORDERED: ACETAMINOPHEN 650 MG/20.3 ML UDC NG PRN (20:46)
[2020-07-12] MEDS: DOXAZOSIN MESYLATE 2 MG TABLET NG SCH (21:00)
[2020-07-12] MEDS: MIDAZOLAM HCL IN 0.9 % NACL/PF 50 ML IV PRN (21:08)
[2020-07-12] MEDS: ENOXAPARIN SODIUM 30 MG/0.3 ML SYRINGE SUBCUT SCH (21:13)
[2020-07-12] MEDS: metroNIDAZOLE 500 mg/NS 100 ML IV SCH (21:46)
[2020-07-12] MEDS ORDERED: NS 500 ML IV ONE (22:00)
[2020-07-12] MEDS ORDERED: PROPOFOL DRIP 100 ML IV ONE (22:04)
[2020-07-12] MEDS ORDERED: NOREPINEPHRINE 4 MG/4 ML VIAL IV ONE (23:02)
[2020-07-12] MEDS: NOREPINEPHRINE BITARTRATE 4 MG in NS 246 ML IV PRN (23:05)
[2020-07-13] VITALS (27 sets, daily range): BP systolic 44–120
[2020-07-13] MEDS ORDERED: ALBUMIN HUMAN 25% 100 ML IV PRN (01:15)
[2020-07-13] MEDS ORDERED: PHENYLEPHRINE HCL 100 MG in NS 240 ML IV PRN (01:15)
[2020-07-13] MEDS ORDERED: PHENYLEPHRINE HCL 10 MG/ML VIAL (NEOSYNEPHRINE) ONE (01:24)
[2020-07-13] MEDS ORDERED: ALBUMIN HUMAN 25% 100 ML IV ONE (01:27)
[2020-07-13] MEDS: PROPOFOL DRIP 100 ML IV PRN ×6 (01:51→22:21)
[2020-07-13] MEDS ORDERED: PROPOFOL DRIP 100 ML IV ONE (04:28)
[2020-07-13] MEDS: MIDAZOLAM HCL IN 0.9 % NACL/PF 50 ML IV PRN ×2 (05:30→18:10)
[2020-07-13] MEDS: KCL 20 mEq in NS 1000 mL 1,000 ML IV SCH ×3 (05:56→16:57)
[2020-07-13 08:15] LABS: BASOPHILS % (AUTO) 0.1 % (0.0-2.0); EOSINOPHILS % (AUTO) 0.1 % (0.0-4.0); HEMATOCRIT 33.6 % (36-54); HEMOGLOBIN 11.1 g/dL (14.0-18.0); LYMPHOCYTES # (AUTO) 0.2 K/uL (1.0-5.5); LYMPHOCYTES % (AUTO) 3.5 % (20.5-51.5); MEAN CORPUSCULAR HEMOGLOBIN 31 pg (27-31); MEAN CORPUSCULAR HGB CONC 33 % (32-36); MEAN CORPUSCULAR VOLUME 94 fL (79.0-98.0); MONOCYTES # (AUTO) 0.3 K/uL (0.0-1.0); MONOCYTES % (AUTO) 4.3 % (1.7-9.3); PLATELET COUNT (AUTO) 128 K/uL (130-430); RED BLOOD CELL COUNT(AUTO) 3.56 MIL/uL (4.2-6.2); RED CELL DISTRIBUTION WIDTH 13.8 % (9.0-15.0); WHITE BLOOD COUNT (AUTO) 6.5 K/uL (4.8-10.8)
[2020-07-13] MEDS ORDERED: ETOMIDATE 20 MG/ 10 ML VIAL (AMIDATE) IVP ONE (08:27)
[2020-07-13] MEDS ORDERED: VECURONIUM BROMIDE 10 MG/VIAL (NORCURON) IV ONE (08:27)
[2020-07-13 08:40] LABS: CALCIUM 7.3 mg/dL (8.4-11.0); CREATININE 1.66 mg/dL (0.55-1.30); PHOSPHORUS 5.1 mg/dL (2.7-4.5); TOTAL BILIRUBIN 0.7 mg/dL (0.0-1.0)
[2020-07-13] MEDS: PIOGLITAZONE HCL 15 MG TABLET NG SCH (09:00)
[2020-07-13] MEDS: FLUTICASONE PROPIONATE 50 mCg/SPRAY 16 GM NS SCH (09:00)
[2020-07-13] MEDS: amLODIPine BESYLATE 10 MG TABLET NG SCH (09:00)
[2020-07-13] MEDS: CHOLECALCIFEROL (VITAMIN D3) 5,000 UNIT TABLET NG SCH (09:12)
[2020-07-13] MEDS: methylPREDNISolone SOD SUCC 40 MG/ML VIAL IVP SCH ×2 (09:12→22:07)
[2020-07-13] MEDS: ATORVASTATIN 10 MG TABLET NG SCH (09:12)
[2020-07-13] MEDS: metroNIDAZOLE 500 mg/NS 100 ML IV SCH ×2 (09:12→22:02)
[2020-07-13] MEDS: INSULIN REGULAR, HUMAN 100 UNITS/ML, 10 ML VIAL (humuLIN R) SUBCUT PRN ×3 (09:37→17:27)
[2020-07-13] MEDS: glyBURIDE 5 MG TABLET NG SCH ×2 (09:52→16:56)
[2020-07-13] MEDS ORDERED: DOPamine PREMIX 250 ML IV PRN (10:15)
[2020-07-13] MEDS: FLUCONAZOLE 100 mg/ NS 50 ML IV SCH (16:20)
[2020-07-13] MEDS: NOREPINEPHRINE BITARTRATE 4 MG in NS 246 ML IV PRN ×2 (16:23→22:25)
[2020-07-13] MEDS: cefTRIAXone 1 GM in D5W 50 ML IV SCH (16:57)
[2020-07-13] MEDS: DOXAZOSIN MESYLATE 2 MG TABLET NG SCH (22:07)
[2020-07-13] MEDS: ENOXAPARIN SODIUM 30 MG/0.3 ML SYRINGE SUBCUT SCH (22:08)
[2020-07-14] VITALS (29 sets, daily range): BP systolic 106–149
[2020-07-14] MEDS: INSULIN REGULAR, HUMAN 100 UNITS/ML, 10 ML VIAL (humuLIN R) SUBCUT PRN ×3 (00:39→18:27)
[2020-07-14] MEDS: KCL 20 mEq in NS 1000 mL 1,000 ML IV SCH ×2 (00:45→06:50)
[2020-07-14 06:38] LABS: INR 1.2 (0.80-1.20); PROTHROMBIN TIME 11.9 SECS (9.5-12.5)
[2020-07-14 07:33] LABS: BASOPHILS % (AUTO) 0.2 % (0.0-2.0); HEMATOCRIT 31.6 % (36-54); HEMOGLOBIN 10.4 g/dL (14.0-18.0); LYMPHOCYTES # (AUTO) 0.2 K/uL (1.0-5.5); LYMPHOCYTES % (AUTO) 1.8 % (20.5-51.5); MEAN CORPUSCULAR HEMOGLOBIN 31 pg (27-31); MEAN CORPUSCULAR HGB CONC 33 % (32-36); MEAN CORPUSCULAR VOLUME 94 fL (79.0-98.0); MONOCYTES # (AUTO) 0.2 K/uL (0.0-1.0); MONOCYTES % (AUTO) 1.9 % (1.7-9.3); NEUTROPHILS # (AUTO) 12.6 K/uL (1.8-7.7); NEUTROPHILS % (AUTO) 96.1 % (40.0-70.0); PLATELET COUNT (AUTO) 114 K/uL (130-430); RED BLOOD CELL COUNT(AUTO) 3.36 MIL/uL (4.2-6.2); RED CELL DISTRIBUTION WIDTH 14.2 % (9.0-15.0); WHITE BLOOD COUNT (AUTO) 13.2 K/uL (4.8-10.8)
[2020-07-14 07:38] LABS: ALBUMIN 1.8 g/dL (3.4-4.8); CALCIUM 7.3 mg/dL (8.4-11.0); CREATININE 3.11 mg/dL (0.55-1.30); TOTAL BILIRUBIN 0.4 mg/dL (0.0-1.0)
[2020-07-14] MEDS: amLODIPine BESYLATE 10 MG TABLET NG SCH (09:00)
[2020-07-14] MEDS ORDERED: VECURONIUM BROMIDE 10 MG/VIAL (NORCURON) IVP ONE (09:48)
[2020-07-14] MEDS ORDERED: ETOMIDATE 20 MG/ 10 ML VIAL (AMIDATE) IVP ONE (09:48)
[2020-07-14] MEDS: metroNIDAZOLE 500 mg/NS 100 ML IV SCH ×2 (09:58→21:00)
[2020-07-14] MEDS: PIOGLITAZONE HCL 15 MG TABLET NG SCH (09:59)
[2020-07-14] MEDS ORDERED: SODIUM POLYSTYRENE SULFONATE 15 GM/60 ML UDBTL PO ONE (10:00)
[2020-07-14] MEDS: ATORVASTATIN 10 MG TABLET NG SCH (10:13)
[2020-07-14] MEDS: methylPREDNISolone SOD SUCC 40 MG/ML VIAL IVP SCH ×2 (10:13→21:00)
[2020-07-14] MEDS: glyBURIDE 5 MG TABLET NG SCH ×2 (10:14→18:28)
[2020-07-14] MEDS: CHOLECALCIFEROL (VITAMIN D3) 5,000 UNIT TABLET NG SCH (10:17)
[2020-07-14] MEDS ORDERED: NOREPINEPHRINE 4 MG/4 ML VIAL IV ONE ×2 (11:03→16:40)
[2020-07-14] MEDS: PROPOFOL DRIP 100 ML IV PRN ×3 (11:15→21:00)
[2020-07-14] MEDS: FLUCONAZOLE 100 mg/ NS 50 ML IV SCH (17:14)
[2020-07-14] MEDS: FLUTICASONE PROPIONATE 50 mCg/SPRAY 16 GM NS SCH (17:25)
[2020-07-14] MEDS: cefTRIAXone 1 GM in D5W 50 ML IV SCH (17:28)
[2020-07-14] MEDS: DOXAZOSIN MESYLATE 2 MG TABLET NG SCH (21:00)
[2020-07-14] MEDS: ENOXAPARIN SODIUM 30 MG/0.3 ML SYRINGE SUBCUT SCH (21:00)
[2020-07-15] VITALS (29 sets, daily range): BP systolic 85–145
[2020-07-15] MEDS ORDERED: NOREPINEPHRINE 4 MG/4 ML VIAL IV ONE (00:41)
[2020-07-15] MEDS: PROPOFOL DRIP 100 ML IV PRN ×4 (01:30→17:44)
[2020-07-15] MEDS: INSULIN REGULAR, HUMAN 100 UNITS/ML, 10 ML VIAL (humuLIN R) SUBCUT PRN ×4 (01:37→18:35)
[2020-07-15] MEDS ORDERED: HEPARIN SODIUM,PORCINE 5,000 UNITS/ML VIAL ONE (05:32)
[2020-07-15 07:28] LABS: BASOPHILS % (AUTO) 0.2 % (0.0-2.0); HEMATOCRIT 30.6 % (36-54); HEMOGLOBIN 10.1 g/dL (14.0-18.0); LYMPHOCYTES # (AUTO) 0.4 K/uL (1.0-5.5); LYMPHOCYTES % (AUTO) 2.4 % (20.5-51.5); MEAN CORPUSCULAR HEMOGLOBIN 31 pg (27-31); MEAN CORPUSCULAR HGB CONC 33 % (32-36); MEAN CORPUSCULAR VOLUME 94 fL (79.0-98.0); MONOCYTES # (AUTO) 0.4 K/uL (0.0-1.0); MONOCYTES % (AUTO) 2.3 % (1.7-9.3); NEUTROPHILS # (AUTO) 15.3 K/uL (1.8-7.7); NEUTROPHILS % (AUTO) 95.1 % (40.0-70.0); PLATELET COUNT (AUTO) 106 K/uL (130-430); RED BLOOD CELL COUNT(AUTO) 3.25 MIL/uL (4.2-6.2); RED CELL DISTRIBUTION WIDTH 13.9 % (9.0-15.0); WHITE BLOOD COUNT (AUTO) 16.1 K/uL (4.8-10.8)
[2020-07-15 08:18] LABS: ALBUMIN 1.7 g/dL (3.4-4.8); CALCIUM 7.5 mg/dL (8.4-11.0); CREATININE 4.89 mg/dL (0.55-1.30); TOTAL BILIRUBIN 0.3 mg/dL (0.0-1.0)
[2020-07-15] MEDS: FLUTICASONE PROPIONATE 50 mCg/SPRAY 16 GM NS SCH (09:00)
[2020-07-15] MEDS: PIOGLITAZONE HCL 15 MG TABLET NG SCH (09:00)
[2020-07-15] MEDS: amLODIPine BESYLATE 10 MG TABLET NG SCH (09:00)
[2020-07-15] MEDS: ATORVASTATIN 10 MG TABLET NG SCH (10:18)
[2020-07-15] MEDS: CHOLECALCIFEROL (VITAMIN D3) 5,000 UNIT TABLET NG SCH (10:19)
[2020-07-15] MEDS: metroNIDAZOLE 500 mg/NS 100 ML IV SCH (10:20)
[2020-07-15] MEDS: glyBURIDE 5 MG TABLET NG SCH ×2 (10:21→18:33)
[2020-07-15] MEDS: NOREPINEPHRINE BITARTRATE 4 MG in NS 246 ML IV PRN ×3 (11:45→23:30)
[2020-07-15] MEDS: methylPREDNISolone SOD SUCC 40 MG/ML VIAL IVP SCH ×2 (11:59→21:00)
[2020-07-15] MEDS: PIPERACILLIN/TAZO 2.25G/DEX-IS 50 ML IV SCH ×3 (12:59→23:24)
[2020-07-15] MEDS ORDERED: niCARdipine 2.5 MG/ML, 10 ML VIAL (CARDENE) IV ONE (16:12)
[2020-07-15] MEDS ORDERED: DILTIAZEM HCL 25 MG/5 ML VIAL IVP ONE (16:15)
[2020-07-15] MEDS ORDERED: ADENOSINE 6MG/2ML VIAL IVP ONE (17:30)
[2020-07-15] MEDS: FLUCONAZOLE 100 mg/ NS 50 ML IV SCH (18:05)
[2020-07-15] MEDS: AMIODARONE HCL 450 MG in D5W 241 ML IV SCH (19:16)
[2020-07-15] MEDS ORDERED: DOXAZOSIN MESYLATE 2 MG TABLET ONE (20:17)
[2020-07-15] MEDS: ENOXAPARIN SODIUM 30 MG/0.3 ML SYRINGE SUBCUT SCH (21:00)
[2020-07-15] MEDS: DOXAZOSIN MESYLATE 2 MG TABLET NG SCH (21:00)
[2020-07-16] VITALS (27 sets, daily range): BP systolic 98–133
[2020-07-16] MEDS: INSULIN REGULAR, HUMAN 100 UNITS/ML, 10 ML VIAL (humuLIN R) SUBCUT PRN ×5 (00:07→18:03)
[2020-07-16] MEDS ORDERED: AMIODARONE HCL 450 MG/9 ML VIAL IV ONE (00:44)
[2020-07-16 06:08] LABS: LYMPHOCYTES # (AUTO) 0.4 K/uL (1.0-5.5)
[2020-07-16 06:22] LABS: ALBUMIN 1.7 g/dL (3.4-4.8); CALCIUM 7.6 mg/dL (8.4-11.0); CREATININE 5.41 mg/dL (0.55-1.30); TOTAL BILIRUBIN 0.6 mg/dL (0.0-1.0)
[2020-07-16 06:29] LABS: BASOPHILS % (AUTO) 0.1 % (0.0-2.0); HEMATOCRIT 33.3 % (36-54); HEMOGLOBIN 10.7 g/dL (14.0-18.0); MEAN CORPUSCULAR HEMOGLOBIN 31 pg (27-31); MEAN CORPUSCULAR HGB CONC 32 % (32-36); MONOCYTES # (AUTO) 0.6 K/uL (0.0-1.0); MONOCYTES % (AUTO) 3.3 % (1.7-9.3); NEUTROPHILS # (AUTO) 17.3 K/uL (1.8-7.7); NEUTROPHILS % (AUTO) 94.6 % (40.0-70.0); PLATELET COUNT (AUTO) 113 K/uL (130-430); RED BLOOD CELL COUNT(AUTO) 3.49 MIL/uL (4.2-6.2); WHITE BLOOD COUNT (AUTO) 18.3 K/uL (4.8-10.8)
[2020-07-16] MEDS: PIPERACILLIN/TAZO 2.25G/DEX-IS 50 ML IV SCH ×3 (06:30→17:31)
[2020-07-16 06:32] LABS: MEAN CORPUSCULAR VOLUME 94 fL (79.0-98.0)
[2020-07-16 08:36] LABS: POTASSIUM 5.8 mmol/L (3.5-5.1)
[2020-07-16] MEDS: PIOGLITAZONE HCL 15 MG TABLET NG SCH (09:00)
[2020-07-16] MEDS: FLUTICASONE PROPIONATE 50 mCg/SPRAY 16 GM NS SCH (09:00)
[2020-07-16] MEDS: ATORVASTATIN 10 MG TABLET NG SCH (09:00)
[2020-07-16] MEDS: methylPREDNISolone SOD SUCC 40 MG/ML VIAL IVP SCH ×2 (09:27→20:14)
[2020-07-16] MEDS: PROPOFOL DRIP 100 ML IV PRN ×2 (09:28→17:34)
[2020-07-16] MEDS: glyBURIDE 5 MG TABLET NG SCH ×2 (09:34→17:37)
[2020-07-16] MEDS: CHOLECALCIFEROL (VITAMIN D3) 5,000 UNIT TABLET NG SCH (09:34)
[2020-07-16] MEDS: amLODIPine BESYLATE 10 MG TABLET NG SCH (09:35)
[2020-07-16] MEDS ORDERED: NOREPINEPHRINE 4 MG/4 ML VIAL IV ONE (15:58)
[2020-07-16] MEDS: NOREPINEPHRINE BITARTRATE 4 MG in NS 246 ML IV PRN (16:09)
[2020-07-16] MEDS: FLUCONAZOLE 100 mg/ NS 50 ML IV SCH (16:14)
[2020-07-16] MEDS ORDERED: SODIUM POLYSTYRENE SULFONATE 15 GM/60 ML UDBTL NG ONE (18:00)
[2020-07-16] MEDS: ENOXAPARIN SODIUM 30 MG/0.3 ML SYRINGE SUBCUT SCH (20:15)
[2020-07-16] MEDS: DOXAZOSIN MESYLATE 2 MG TABLET NG SCH (20:15)
[2020-07-16] MEDS: AMIODARONE HCL 450 MG in D5W 241 ML IV SCH (20:36)
[2020-07-17] VITALS (31 sets, daily range): BP systolic 105–142
[2020-07-17] MEDS: PIPERACILLIN/TAZO 2.25G/DEX-IS 50 ML IV SCH ×4 (00:21→18:11)
[2020-07-17] MEDS: INSULIN REGULAR, HUMAN 100 UNITS/ML, 10 ML VIAL (humuLIN R) SUBCUT PRN ×6 (00:23→23:51)
[2020-07-17] MEDS: PROPOFOL DRIP 100 ML IV PRN ×2 (00:26→06:00)
[2020-07-17 08:12] LABS: BASOPHILS % (AUTO) 0.2 % (0.0-2.0); EOSINOPHILS % (AUTO) 0.1 % (0.0-4.0); HEMATOCRIT 32.9 % (36-54); HEMOGLOBIN 10.7 g/dL (14.0-18.0); LYMPHOCYTES # (AUTO) 0.4 K/uL (1.0-5.5); MEAN CORPUSCULAR HEMOGLOBIN 31 pg (27-31); MEAN CORPUSCULAR HGB CONC 33 % (32-36); MEAN CORPUSCULAR VOLUME 94 fL (79.0-98.0); MONOCYTES # (AUTO) 0.3 K/uL (0.0-1.0); MONOCYTES % (AUTO) 1.6 % (1.7-9.3); NEUTROPHILS # (AUTO) 17.6 K/uL (1.8-7.7); NEUTROPHILS % (AUTO) 96.1 % (40.0-70.0); PLATELET COUNT (AUTO) 109 K/uL (130-430); RED BLOOD CELL COUNT(AUTO) 3.48 MIL/uL (4.2-6.2); WHITE BLOOD COUNT (AUTO) 18.3 K/uL (4.8-10.8)
[2020-07-17 08:31] LABS: ALBUMIN 1.6 g/dL (3.4-4.8); CALCIUM 7.9 mg/dL (8.4-11.0); CREATININE 6.22 mg/dL (0.55-1.30); TOTAL BILIRUBIN 0.4 mg/dL (0.0-1.0)
[2020-07-17] MEDS: methylPREDNISolone SOD SUCC 40 MG/ML VIAL IVP SCH ×2 (08:35→21:38)
[2020-07-17] MEDS: CHOLECALCIFEROL (VITAMIN D3) 5,000 UNIT TABLET NG SCH (09:00)
[2020-07-17] MEDS ORDERED: INSULIN GLARGINE 100 UNITS/ML 10 ML VIAL SUBCUT SCH (09:00)
[2020-07-17] MEDS: FLUTICASONE PROPIONATE 50 mCg/SPRAY 16 GM NS SCH (09:00)
[2020-07-17 09:52] LABS: POTASSIUM 6.1 mmol/L (3.5-5.1)
[2020-07-17] MEDS ORDERED: AMIODARONE HCL 200 MG TABLET PO ONE (10:00)
[2020-07-17] MEDS ORDERED: SODIUM POLYSTYRENE SULFONATE 15 GM/60 ML UDBTL NG ONE (10:30)
[2020-07-17] MEDS ORDERED: COMMUNICATION ORDER XX ONE (10:45)
[2020-07-17] MEDS ORDERED: AMIODARONE HCL 200 MG TABLET ONE (11:44)
[2020-07-17] MEDS: INSULIN GLARGINE 100 UNITS/ML 10 ML VIAL SUBCUT SCH (11:46)
[2020-07-17] MEDS ORDERED: LACTULOSE 20 GM/30 ML UDC ONE (12:12)
[2020-07-17] MEDS ORDERED: SODIUM POLYSTYRENE SULFONATE 15 GM/60 ML UDBTL ONE (12:16)
[2020-07-17] MEDS: FLUCONAZOLE 100 mg/ NS 50 ML IV SCH (18:51)
[2020-07-17] MEDS: ENOXAPARIN SODIUM 30 MG/0.3 ML SYRINGE SUBCUT SCH (21:37)
[2020-07-17] MEDS: AMIODARONE HCL 200 MG TABLET PO SCH (21:38)
[2020-07-17] MEDS: DOXAZOSIN MESYLATE 2 MG TABLET NG SCH (21:42)
[2020-07-17] MEDS ORDERED: DOXAZOSIN MESYLATE 2 MG TABLET ONE (21:42)
[2020-07-18] VITALS (26 sets, daily range): BP systolic 90–131
[2020-07-18] MEDS: PIPERACILLIN/TAZO 2.25G/DEX-IS 50 ML IV SCH ×5 (00:04→23:46)
[2020-07-18] MEDS: INSULIN REGULAR, HUMAN 100 UNITS/ML, 10 ML VIAL (humuLIN R) SUBCUT PRN ×5 (05:52→23:46)
[2020-07-18] MEDS: PROPOFOL DRIP 100 ML IV PRN ×2 (06:01→12:08)
[2020-07-18 06:56] LABS: ALBUMIN 1.4 g/dL (3.4-4.8); CALCIUM 7.4 mg/dL (8.4-11.0); CREATININE 6.8 mg/dL (0.55-1.30); TOTAL BILIRUBIN 0.5 mg/dL (0.0-1.0)
[2020-07-18 07:24] LABS: POTASSIUM 5.8 mmol/L (3.5-5.1)
[2020-07-18 07:40] LABS: BASOPHILS % (AUTO) 0.3 % (0.0-2.0); EOSINOPHILS # (AUTO) 0.1 K/uL (0.0-0.4); EOSINOPHILS % (AUTO) 0.6 % (0.0-4.0); HEMATOCRIT 26.6 % (36-54); HEMOGLOBIN 9.2 g/dL (14.0-18.0); LYMPHOCYTES # (AUTO) 0.3 K/uL (1.0-5.5); LYMPHOCYTES % (AUTO) 1.9 % (20.5-51.5); MEAN CORPUSCULAR HEMOGLOBIN 32 pg (27-31); MEAN CORPUSCULAR HGB CONC 35 % (32-36); MEAN CORPUSCULAR VOLUME 94 fL (79.0-98.0); MONOCYTES % (AUTO) 0.2 % (1.7-9.3); NEUTROPHILS # (AUTO) 13.9 K/uL (1.8-7.7); PLATELET COUNT (AUTO) 202 K/uL (130-430); RED BLOOD CELL COUNT(AUTO) 2.84 MIL/uL (4.2-6.2); RED CELL DISTRIBUTION WIDTH 13.9 % (9.0-15.0); WHITE BLOOD COUNT (AUTO) 14.3 K/uL (4.8-10.8)
[2020-07-18] MEDS: FLUTICASONE PROPIONATE 50 mCg/SPRAY 16 GM NS SCH (09:00)
[2020-07-18] MEDS: CHOLECALCIFEROL (VITAMIN D3) 5,000 UNIT TABLET NG SCH (09:45)
[2020-07-18] MEDS: AMIODARONE HCL 200 MG TABLET PO SCH ×2 (09:45→21:32)
[2020-07-18] MEDS: INSULIN GLARGINE 100 UNITS/ML 10 ML VIAL SUBCUT SCH (09:50)
[2020-07-18] MEDS: methylPREDNISolone SOD SUCC 40 MG/ML VIAL IVP SCH ×2 (09:54→21:33)
[2020-07-18] MEDS ORDERED: HEPARIN SODIUM, PORCINE 10,000 UNITS/ 10 ML VIAL MC ONE (16:00)
[2020-07-18] MEDS ORDERED: ALBUMIN HUMAN 25% 200 ML IV ONE (16:15)
[2020-07-18] MEDS ORDERED: HEPARIN SODIUM,PORCINE 5,000 UNITS/ML VIAL ONE (17:36)
[2020-07-18] MEDS: FLUCONAZOLE 100 mg/ NS 50 ML IV SCH (17:48)
[2020-07-18] MEDS: DOXAZOSIN MESYLATE 2 MG TABLET NG SCH (21:00)
[2020-07-18] MEDS: ENOXAPARIN SODIUM 30 MG/0.3 ML SYRINGE SUBCUT SCH (21:33)
[2020-07-19] VITALS (29 sets, daily range): BP systolic 115–157
[2020-07-19] MEDS: PROPOFOL DRIP 100 ML IV PRN ×4 (00:07→21:00)
[2020-07-19] MEDS ORDERED: PIPERACILLIN/TAZOBACTAM 2.25 GM VIAL IV ONE (01:09)
[2020-07-19] MEDS: INSULIN REGULAR, HUMAN 100 UNITS/ML, 10 ML VIAL (humuLIN R) SUBCUT PRN ×4 (05:24→23:24)
[2020-07-19] MEDS: PIPERACILLIN/TAZO 2.25G/DEX-IS 50 ML IV SCH ×4 (05:24→23:22)
[2020-07-19 07:10] LABS: CALCIUM 7.3 mg/dL (8.4-11.0); CREATININE 5.64 mg/dL (0.55-1.30); POTASSIUM 4.7 mmol/L (3.5-5.1); TOTAL BILIRUBIN 0.6 mg/dL (0.0-1.0)
[2020-07-19 07:14] LABS: BASOPHILS % (AUTO) 0.4 % (0.0-2.0); EOSINOPHILS % (AUTO) 0.3 % (0.0-4.0); LYMPHOCYTES # (AUTO) 0.4 K/uL (1.0-5.5); LYMPHOCYTES % (AUTO) 2.9 % (20.5-51.5); MEAN CORPUSCULAR HEMOGLOBIN 31 pg (27-31); MEAN CORPUSCULAR HGB CONC 33 % (32-36); MEAN CORPUSCULAR VOLUME 93 fL (79.0-98.0); MONOCYTES # (AUTO) 0.2 K/uL (0.0-1.0); MONOCYTES % (AUTO) 1.8 % (1.7-9.3); NEUTROPHILS # (AUTO) 12.3 K/uL (1.8-7.7); NEUTROPHILS % (AUTO) 94.6 % (40.0-70.0); PLATELET COUNT (AUTO) 114 K/uL (130-430); RED BLOOD CELL COUNT(AUTO) 2.04 MIL/uL (4.2-6.2); RED CELL DISTRIBUTION WIDTH 13.9 % (9.0-15.0)
[2020-07-19 07:49] LABS: HEMOGLOBIN 6.3 g/dL (14.0-18.0)
[2020-07-19] MEDS: CHOLECALCIFEROL (VITAMIN D3) 5,000 UNIT TABLET NG SCH (08:51)
[2020-07-19] MEDS: FLUTICASONE PROPIONATE 50 mCg/SPRAY 16 GM NS SCH (08:52)
[2020-07-19] MEDS: AMIODARONE HCL 200 MG TABLET PO SCH ×2 (08:52→21:00)
[2020-07-19] MEDS: methylPREDNISolone SOD SUCC 40 MG/ML VIAL IVP SCH ×2 (08:53→21:00)
[2020-07-19] MEDS: INSULIN GLARGINE 100 UNITS/ML 10 ML VIAL SUBCUT SCH (09:24)
[2020-07-19] MEDS ORDERED: HEPARIN SODIUM,PORCINE 5,000 UNITS/ML VIAL MC ONE ×2 (17:15)
[2020-07-19] MEDS: ENOXAPARIN SODIUM 30 MG/0.3 ML SYRINGE SUBCUT SCH (21:00)
[2020-07-19] MEDS: BUDESONIDE 0.5 MG/2 ML AMPUL.NEB INH SCH (21:00)
[2020-07-19] MEDS: DOXAZOSIN MESYLATE 2 MG TABLET NG SCH (21:00)
[2020-07-19] MEDS ORDERED: DOXAZOSIN MESYLATE 2 MG TABLET ONE (21:48)
[2020-07-20] VITALS (30 sets, daily range): BP systolic 102–158
[2020-07-20] MEDS: PROPOFOL DRIP 100 ML IV PRN ×5 (02:05→21:50)
[2020-07-20] MEDS: PIPERACILLIN/TAZO 2.25G/DEX-IS 50 ML IV SCH ×3 (06:00→17:11)
[2020-07-20 06:35] LABS: BASOPHILS % (AUTO) 0.1 % (0.0-2.0); HEMATOCRIT 23.9 % (36-54); HEMOGLOBIN 8.1 g/dL (14.0-18.0); LYMPHOCYTES # (AUTO) 0.8 K/uL (1.0-5.5); LYMPHOCYTES % (AUTO) 4.3 % (20.5-51.5); MEAN CORPUSCULAR HEMOGLOBIN 30 pg (27-31); MEAN CORPUSCULAR HGB CONC 34 % (32-36); MEAN CORPUSCULAR VOLUME 89 fL (79.0-98.0); MONOCYTES # (AUTO) 0.2 K/uL (0.0-1.0); MONOCYTES % (AUTO) 1.1 % (1.7-9.3); NEUTROPHILS % (AUTO) 94.5 % (40.0-70.0); PLATELET COUNT (AUTO) 145 K/uL (130-430); RED BLOOD CELL COUNT(AUTO) 2.67 MIL/uL (4.2-6.2); RED CELL DISTRIBUTION WIDTH 15.7 % (9.0-15.0); WHITE BLOOD COUNT (AUTO) 17.9 K/uL (4.8-10.8)
[2020-07-20] MEDS: INSULIN REGULAR, HUMAN 100 UNITS/ML, 10 ML VIAL (humuLIN R) SUBCUT PRN ×3 (06:37→17:25)
[2020-07-20 07:53] LABS: CALCIUM 7.5 mg/dL (8.4-11.0); CREATININE 4.66 mg/dL (0.55-1.30); POTASSIUM 4.6 mmol/L (3.5-5.1); TOTAL BILIRUBIN 0.6 mg/dL (0.0-1.0)
[2020-07-20] MEDS: FLUTICASONE PROPIONATE 50 mCg/SPRAY 16 GM NS SCH (09:00)
[2020-07-20] MEDS: INSULIN GLARGINE 100 UNITS/ML 10 ML VIAL SUBCUT SCH (09:46)
[2020-07-20] MEDS: CHOLECALCIFEROL (VITAMIN D3) 5,000 UNIT TABLET NG SCH (09:50)
[2020-07-20] MEDS: methylPREDNISolone SOD SUCC 40 MG/ML VIAL IVP SCH ×2 (09:50→21:48)
[2020-07-20] MEDS: AMIODARONE HCL 200 MG TABLET PO SCH ×2 (09:58→21:48)
[2020-07-20] MEDS: MICAFUNGIN SODIUM 100 MG in NS 100 ML IV SCH (13:55)
[2020-07-20] MEDS: DOXAZOSIN MESYLATE 2 MG TABLET NG SCH (21:48)
[2020-07-20] MEDS: ENOXAPARIN SODIUM 30 MG/0.3 ML SYRINGE SUBCUT SCH (21:48)
[2020-07-20] MEDS ORDERED: DOXAZOSIN MESYLATE 2 MG TABLET ONE (22:57)
[2020-07-21] VITALS (27 sets, daily range): BP systolic 90–147
[2020-07-21] MEDS: PIPERACILLIN/TAZO 2.25G/DEX-IS 50 ML IV SCH ×5 (00:47→23:39)
[2020-07-21] MEDS: INSULIN REGULAR, HUMAN 100 UNITS/ML, 10 ML VIAL (humuLIN R) SUBCUT PRN ×5 (00:49→23:42)
[2020-07-21] MEDS: PROPOFOL DRIP 100 ML IV PRN ×3 (02:33→23:41)
[2020-07-21 06:39] LABS: BASOPHILS % (AUTO) 0.1 % (0.0-2.0); EOSINOPHILS % (AUTO) 0.1 % (0.0-4.0); HEMATOCRIT 22.8 % (36-54); HEMOGLOBIN 7.8 g/dL (14.0-18.0); LYMPHOCYTES # (AUTO) 0.5 K/uL (1.0-5.5); LYMPHOCYTES % (AUTO) 2.5 % (20.5-51.5); MEAN CORPUSCULAR HEMOGLOBIN 31 pg (27-31); MEAN CORPUSCULAR HGB CONC 34 % (32-36); MEAN CORPUSCULAR VOLUME 90 fL (79.0-98.0); MONOCYTES # (AUTO) 0.4 K/uL (0.0-1.0); MONOCYTES % (AUTO) 2.1 % (1.7-9.3); NEUTROPHILS # (AUTO) 19.8 K/uL (1.8-7.7); NEUTROPHILS % (AUTO) 95.2 % (40.0-70.0); PLATELET COUNT (AUTO) 195 K/uL (130-430); RED BLOOD CELL COUNT(AUTO) 2.53 MIL/uL (4.2-6.2); RED CELL DISTRIBUTION WIDTH 15.7 % (9.0-15.0); WHITE BLOOD COUNT (AUTO) 20.8 K/uL (4.8-10.8)
[2020-07-21 08:09] LABS: ALBUMIN 1.8 g/dL (3.4-4.8); CALCIUM 7.5 mg/dL (8.4-11.0); CREATININE 5.3 mg/dL (0.55-1.30); POTASSIUM 5.1 mmol/L (3.5-5.1); TOTAL BILIRUBIN 0.6 mg/dL (0.0-1.0)
[2020-07-21] MEDS: CHOLECALCIFEROL (VITAMIN D3) 5,000 UNIT TABLET NG SCH (08:31)
[2020-07-21] MEDS: FLUTICASONE PROPIONATE 50 mCg/SPRAY 16 GM NS SCH (08:31)
[2020-07-21] MEDS: methylPREDNISolone SOD SUCC 40 MG/ML VIAL IVP SCH ×2 (08:31→20:32)
[2020-07-21] MEDS: INSULIN GLARGINE 100 UNITS/ML 10 ML VIAL SUBCUT SCH (08:33)
[2020-07-21] MEDS: AMIODARONE HCL 200 MG TABLET PO SCH ×2 (08:44→20:32)
[2020-07-21] MEDS: MICAFUNGIN SODIUM 100 MG in NS 100 ML IV SCH (13:00)
[2020-07-21] MEDS ORDERED: HEPARIN SODIUM,PORCINE 5,000 UNITS/ML VIAL ONE (15:10)
[2020-07-21] MEDS: ENOXAPARIN SODIUM 30 MG/0.3 ML SYRINGE SUBCUT SCH (20:34)
[2020-07-21] MEDS: DOXAZOSIN MESYLATE 2 MG TABLET NG SCH (21:00)
[2020-07-22] VITALS (25 sets, daily range): BP systolic 94–144
[2020-07-22] MEDS: PROPOFOL DRIP 100 ML IV PRN ×4 (02:48→23:29)
[2020-07-22] MEDS: PIPERACILLIN/TAZO 2.25G/DEX-IS 50 ML IV SCH (05:13)
[2020-07-22] MEDS: INSULIN REGULAR, HUMAN 100 UNITS/ML, 10 ML VIAL (humuLIN R) SUBCUT PRN ×2 (05:14→13:45)
[2020-07-22] MEDS: CHOLECALCIFEROL (VITAMIN D3) 5,000 UNIT TABLET NG SCH (09:00)
[2020-07-22] MEDS: AMIODARONE HCL 200 MG TABLET PO SCH ×2 (09:00→21:18)
[2020-07-22] MEDS: FLUTICASONE PROPIONATE 50 mCg/SPRAY 16 GM NS SCH (09:00)
[2020-07-22] MEDS: INSULIN GLARGINE 100 UNITS/ML 10 ML VIAL SUBCUT SCH (09:55)
[2020-07-22 10:49] LABS: HEMOGLOBIN 7.1 g/dL (14.0-18.0)
[2020-07-22 10:58] LABS: MEAN CORPUSCULAR HEMOGLOBIN 32 pg (27-31); MEAN CORPUSCULAR HGB CONC 35 % (32-36); MEAN CORPUSCULAR VOLUME 92 fL (79.0-98.0); PLATELET COUNT (AUTO) 231 K/uL (130-430); RED BLOOD CELL COUNT(AUTO) 2.24 MIL/uL (4.2-6.2); RED CELL DISTRIBUTION WIDTH 16.2 % (9.0-15.0); WHITE BLOOD COUNT (AUTO) 22.7 K/uL (4.8-10.8)
[2020-07-22] MEDS: methylPREDNISolone SOD SUCC 40 MG/ML VIAL IVP SCH ×2 (11:05→21:00)
[2020-07-22 11:22] LABS: HEMATOCRIT 20.6 % (36-54)
[2020-07-22 11:47] LABS: ALBUMIN 1.6 g/dL (3.4-4.8); CALCIUM 7.2 mg/dL (8.4-11.0); CREATININE 4.36 mg/dL (0.55-1.30); POTASSIUM 4.3 mmol/L (3.5-5.1); TOTAL BILIRUBIN 0.5 mg/dL (0.0-1.0)
[2020-07-22] MEDS: MICAFUNGIN SODIUM 100 MG in NS 100 ML IV SCH (13:22)
[2020-07-22] MEDS ORDERED: ALBUMIN HUMAN 25% 100 ML IV SCH (13:45)
[2020-07-22] MEDS: NACL 0.9% 1,000 ML IV SCH (13:45)
[2020-07-22 14:40] LABS: BAND % (MANUAL) 3 % (0-6); BASOPHILS % (MANUAL) 0 % (0-2); CORRECTED WHITE BLOOD COUNT 20.8 K/uL (4.5-11.0); EOSINOPHILS % (MANUAL) 0 % (0-7); LYMPHOCYTES % (MANUAL) 4 % (20-46); METAMYELOCYTES % 2 % (0-0); MONOCYTES % (MANUAL) 3 % (0-11)
[2020-07-22] MEDS: ENOXAPARIN SODIUM 30 MG/0.3 ML SYRINGE SUBCUT SCH (21:00)
[2020-07-22] MEDS: DOXAZOSIN MESYLATE 2 MG TABLET NG SCH (21:00)
[2020-07-23] VITALS (29 sets, daily range): BP systolic 89–157
[2020-07-23] MEDS: INSULIN REGULAR, HUMAN 100 UNITS/ML, 10 ML VIAL (humuLIN R) SUBCUT PRN ×4 (00:10→18:05)
[2020-07-23] MEDS ORDERED: PROPOFOL DRIP 100 ML IV ONE ×2 (00:15→04:14)
[2020-07-23] MEDS: PROPOFOL DRIP 100 ML IV PRN ×2 (04:28→21:09)
[2020-07-23 08:06] LABS: MEAN CORPUSCULAR HEMOGLOBIN 32 pg (27-31); MEAN CORPUSCULAR HGB CONC 34 % (32-36); MEAN CORPUSCULAR VOLUME 93 fL (79.0-98.0); PLATELET COUNT (AUTO) 209 K/uL (130-430); RED CELL DISTRIBUTION WIDTH 16.5 % (9.0-15.0); WHITE BLOOD COUNT (AUTO) 19.6 K/uL (4.8-10.8)
[2020-07-23 08:25] LABS: ALBUMIN 2.5 g/dL (3.4-4.8); CALCIUM 7.2 mg/dL (8.4-11.0); CREATININE 4.65 mg/dL (0.55-1.30); POTASSIUM 4.4 mmol/L (3.5-5.1); TOTAL BILIRUBIN 0.5 mg/dL (0.0-1.0)
[2020-07-23] MEDS: FLUTICASONE PROPIONATE 50 mCg/SPRAY 16 GM NS SCH (09:00)
[2020-07-23 09:08] LABS: HEMATOCRIT 15.9 % (36-54); HEMOGLOBIN 5.5 g/dL (14.0-18.0); RED BLOOD CELL COUNT(AUTO) 1.71 MIL/uL (4.2-6.2)
[2020-07-23] MEDS: methylPREDNISolone SOD SUCC 40 MG/ML VIAL IVP SCH ×2 (09:29→21:10)
[2020-07-23] MEDS: CHOLECALCIFEROL (VITAMIN D3) 5,000 UNIT TABLET NG SCH (09:29)
[2020-07-23] MEDS ORDERED: PANTOPRAZOLE SODIUM 40 MG/VIAL (PROTONIX) IVP ONE ×3 (09:30→12:30)
[2020-07-23] MEDS: NACL 0.9% 1,000 ML IV SCH ×3 (09:45→19:38)
[2020-07-23] MEDS: INSULIN GLARGINE 100 UNITS/ML 10 ML VIAL SUBCUT SCH (10:00)
[2020-07-23] MEDS: AMIODARONE HCL 200 MG TABLET PO SCH ×2 (10:22→21:10)
[2020-07-23] MEDS: PANTOPRAZOLE SODIUM 40 MG in NS 50 ML IV SCH ×3 (12:30→21:11)
[2020-07-23] MEDS: MICAFUNGIN SODIUM 100 MG in NS 100 ML IV SCH (13:26)
[2020-07-23 13:29] LABS: BAND % (MANUAL) 6 % (0-6); EOSINOPHILS % (MANUAL) 0 % (0-7); LYMPHOCYTES % (MANUAL) 2 % (20-46); MONOCYTES % (MANUAL) 2 % (0-11)
[2020-07-23 13:30] LABS: BASOPHILS % (MANUAL) 0 % (0-2)
[2020-07-23] MEDS ORDERED: MORPHINE 2 MG/ML INJ. SYRINGE IVP PRN (17:00)
[2020-07-23 17:29] LABS: BASOPHILS # (AUTO) 0.1 K/uL (0.0-0.2); BASOPHILS % (AUTO) 0.6 % (0.0-2.0); EOSINOPHILS % (AUTO) 0.1 % (0.0-4.0); HEMATOCRIT 29.4 % (36-54); LYMPHOCYTES # (AUTO) 0.4 K/uL (1.0-5.5); LYMPHOCYTES % (AUTO) 1.7 % (20.5-51.5); MEAN CORPUSCULAR HEMOGLOBIN 31 pg (27-31); MEAN CORPUSCULAR HGB CONC 34 % (32-36); MEAN CORPUSCULAR VOLUME 93 fL (79.0-98.0); MONOCYTES # (AUTO) 0.2 K/uL (0.0-1.0); NEUTROPHILS # (AUTO) 20.6 K/uL (1.8-7.7); NEUTROPHILS % (AUTO) 96.6 % (40.0-70.0); PLATELET COUNT (AUTO) 209 K/uL (130-430); RED BLOOD CELL COUNT(AUTO) 3.18 MIL/uL (4.2-6.2); RED CELL DISTRIBUTION WIDTH 15.2 % (9.0-15.0); WHITE BLOOD COUNT (AUTO) 21.3 K/uL (4.8-10.8)
[2020-07-23] MEDS ORDERED: MORPHINE 2 MG/ML INJ. SYRINGE ONE (17:38)
[2020-07-23] MEDS ORDERED: PANTOPRAZOLE SODIUM 40 MG/VIAL (PROTONIX) IVP SCH ×2 (21:00)
[2020-07-23] MEDS: DOXAZOSIN MESYLATE 2 MG TABLET NG SCH (21:10)
[2020-07-23] MEDS: ENOXAPARIN SODIUM 30 MG/0.3 ML SYRINGE SUBCUT SCH (21:11)
[2020-07-24] VITALS (26 sets, daily range): BP systolic 112–158
[2020-07-24] MEDS: INSULIN REGULAR, HUMAN 100 UNITS/ML, 10 ML VIAL (humuLIN R) SUBCUT PRN ×3 (00:05→19:13)
[2020-07-24] MEDS: PANTOPRAZOLE SODIUM 40 MG in NS 50 ML IV SCH ×5 (01:21→21:00)
[2020-07-24] MEDS: PROPOFOL DRIP 100 ML IV PRN ×3 (01:49→21:34)
[2020-07-24] MEDS: NACL 0.9% 1,000 ML IV SCH ×3 (06:28→23:42)
[2020-07-24 07:59] LABS: ALBUMIN 1.9 g/dL (3.4-4.8); CREATININE 3.57 mg/dL (0.55-1.30); POTASSIUM 4.3 mmol/L (3.5-5.1); TOTAL BILIRUBIN 0.5 mg/dL (0.0-1.0)
[2020-07-24 08:05] LABS: BASOPHILS # (AUTO) 0.1 K/uL (0.0-0.2); BASOPHILS % (AUTO) 0.6 % (0.0-2.0); EOSINOPHILS % (AUTO) 0.1 % (0.0-4.0); HEMOGLOBIN 7.8 g/dL (14.0-18.0); LYMPHOCYTES # (AUTO) 0.3 K/uL (1.0-5.5); LYMPHOCYTES % (AUTO) 1.8 % (20.5-51.5); MEAN CORPUSCULAR HEMOGLOBIN 31 pg (27-31); MEAN CORPUSCULAR HGB CONC 34 % (32-36); MEAN CORPUSCULAR VOLUME 92 fL (79.0-98.0); MONOCYTES # (AUTO) 0.4 K/uL (0.0-1.0); MONOCYTES % (AUTO) 2.6 % (1.7-9.3); NEUTROPHILS # (AUTO) 13.6 K/uL (1.8-7.7); NEUTROPHILS % (AUTO) 94.9 % (40.0-70.0); PLATELET COUNT (AUTO) 179 K/uL (130-430); RED BLOOD CELL COUNT(AUTO) 2.49 MIL/uL (4.2-6.2); RED CELL DISTRIBUTION WIDTH 15.1 % (9.0-15.0); RETICULOCYTE COUNT 7.4 % (0.5-1.5)
[2020-07-24 08:09] LABS: CALCIUM 6.8 mg/dL (8.4-11.0)
[2020-07-24 08:52] LABS: WHITE BLOOD COUNT (AUTO) 14.3 K/uL (4.8-10.8)
[2020-07-24] MEDS ORDERED: methylPREDNISolone SOD SUCC 40 MG/ML VIAL ONE (08:53)
[2020-07-24] MEDS ORDERED: CHOLECALCIFEROL (VITAMIN D-3) 400 UNIT TABLET ONE (08:53)
[2020-07-24] MEDS: CHOLECALCIFEROL (VITAMIN D3) 5,000 UNIT TABLET NG SCH (09:00)
[2020-07-24] MEDS: INSULIN GLARGINE 100 UNITS/ML 10 ML VIAL SUBCUT SCH (09:00)
[2020-07-24] MEDS: FLUTICASONE PROPIONATE 50 mCg/SPRAY 16 GM NS SCH (09:00)
[2020-07-24] MEDS: AMIODARONE HCL 200 MG TABLET PO SCH ×2 (09:00→20:49)
[2020-07-24] MEDS: methylPREDNISolone SOD SUCC 40 MG/ML VIAL IVP SCH ×2 (09:00→20:43)
[2020-07-24] MEDS ORDERED: MORPHINE 2 MG/ML INJ. SYRINGE ONE ×2 (09:03→16:26)
[2020-07-24 09:57] LABS: TOTAL IRON BIND. CAPACITY 98 ug/dL (250-450)
[2020-07-24] MEDS ORDERED: CALCIUM GLUCONATE 2 GM in NS 100 ML IV ONE (10:00)
[2020-07-24] MEDS: CEFEPIME 0.5 GM in D5W 50 ML IV SCH (12:00)
[2020-07-24] MEDS: MICAFUNGIN SODIUM 100 MG in NS 100 ML IV SCH (13:00)
[2020-07-24] MEDS: DOXAZOSIN MESYLATE 2 MG TABLET NG SCH (20:45)
[2020-07-24] MEDS: ENOXAPARIN SODIUM 30 MG/0.3 ML SYRINGE SUBCUT SCH (20:50)
[2020-07-25] VITALS (20 sets, daily range): BP systolic 69–153
[2020-07-25] MEDS: INSULIN REGULAR, HUMAN 100 UNITS/ML, 10 ML VIAL (humuLIN R) SUBCUT PRN ×3 (00:13→18:43)
[2020-07-25] MEDS: PROPOFOL DRIP 100 ML IV PRN ×3 (01:19→06:46)
[2020-07-25] MEDS: PANTOPRAZOLE SODIUM 40 MG in NS 50 ML IV SCH (04:30)
[2020-07-25 07:04] LABS: BASOPHILS % (AUTO) 0.3 % (0.0-2.0); EOSINOPHILS # (AUTO) 0.1 K/uL (0.0-0.4); EOSINOPHILS % (AUTO) 0.5 % (0.0-4.0); HEMATOCRIT 25.2 % (36-54); HEMOGLOBIN 8.6 g/dL (14.0-18.0); LYMPHOCYTES # (AUTO) 0.3 K/uL (1.0-5.5); LYMPHOCYTES % (AUTO) 2.1 % (20.5-51.5); MEAN CORPUSCULAR HEMOGLOBIN 32 pg (27-31); MEAN CORPUSCULAR HGB CONC 34 % (32-36); MEAN CORPUSCULAR VOLUME 93 fL (79.0-98.0); MONOCYTES # (AUTO) 0.3 K/uL (0.0-1.0); MONOCYTES % (AUTO) 1.8 % (1.7-9.3); PLATELET COUNT (AUTO) 200 K/uL (130-430); RED CELL DISTRIBUTION WIDTH 15.6 % (9.0-15.0); WHITE BLOOD COUNT (AUTO) 15.8 K/uL (4.8-10.8)
[2020-07-25 07:06] LABS: FOLATE (FOLIC ACID) 4.4 ng/mL (>3.0)
[2020-07-25 07:38] LABS: ALBUMIN 1.7 g/dL (3.4-4.8); CREATININE 3.75 mg/dL (0.55-1.30); POTASSIUM 4.7 mmol/L (3.5-5.1); TOTAL BILIRUBIN 0.5 mg/dL (0.0-1.0)
[2020-07-25] MEDS ORDERED: MORPHINE I.V. DRIP 100 ML IV PRN ×2 (07:45→09:45)
[2020-07-25] MEDS ORDERED: NALOXONE HCL 0.4 MG/ML AMP (NARCAN) IVP PRN ×2 (07:45→09:45)
[2020-07-25] MEDS ORDERED: MORPHINE I.V. DRIP 100 ML IV ONE (07:49)
[2020-07-25 07:50] LABS: NEUTROPHILS % (AUTO) 95.3 % (40.0-70.0)
[2020-07-25 08:57] LABS: CALCIUM 7.4 mg/dL (8.4-11.0)
[2020-07-25] MEDS: INSULIN GLARGINE 100 UNITS/ML 10 ML VIAL SUBCUT SCH (09:00)
[2020-07-25] MEDS: FLUTICASONE PROPIONATE 50 mCg/SPRAY 16 GM NS SCH (09:00)
[2020-07-25] MEDS: methylPREDNISolone SOD SUCC 40 MG/ML VIAL IVP SCH ×2 (09:00→23:25)
[2020-07-25] MEDS: CHOLECALCIFEROL (VITAMIN D3) 5,000 UNIT TABLET NG SCH (09:00)
[2020-07-25] MEDS: AMIODARONE HCL 200 MG TABLET PO SCH ×2 (09:00→21:00)
[2020-07-25] MEDS: NACL 0.9% 1,000 ML IV SCH ×2 (12:40→23:32)
[2020-07-25] MEDS: CEFEPIME 0.5 GM in D5W 50 ML IV SCH (13:15)
[2020-07-25] MEDS: metroNIDAZOLE 250 mg/NS 50 ML IV SCH ×2 (14:00→23:31)
[2020-07-25] MEDS ORDERED: HEPARIN SODIUM,PORCINE 5,000 UNITS/ML VIAL ONE (18:01)
[2020-07-25] MEDS: DOXAZOSIN MESYLATE 2 MG TABLET NG SCH (21:00)
[2020-07-25] MEDS: ENOXAPARIN SODIUM 30 MG/0.3 ML SYRINGE SUBCUT SCH (23:27)
[2020-07-26] VITALS (10 sets, daily range): BP systolic 42–89
[2020-07-26] MEDS: INSULIN REGULAR, HUMAN 100 UNITS/ML, 10 ML VIAL (humuLIN R) SUBCUT PRN (02:11)
[2020-07-26] MEDS: metroNIDAZOLE 250 mg/NS 50 ML IV SCH (06:45)
[2020-07-26 06:47] LABS: HEMATOCRIT 23.2 % (36-54); MEAN CORPUSCULAR HEMOGLOBIN 33 pg (27-31); MEAN CORPUSCULAR HGB CONC 34 % (32-36); MEAN CORPUSCULAR VOLUME 96 fL (79.0-98.0); PLATELET COUNT (AUTO) 273 K/uL (130-430); RED BLOOD CELL COUNT(AUTO) 2.41 MIL/uL (4.2-6.2); RED CELL DISTRIBUTION WIDTH 17.3 % (9.0-15.0); WHITE BLOOD COUNT (AUTO) 16.3 K/uL (4.8-10.8)
[2020-07-26 10:19] LABS: ALBUMIN 1.4 g/dL (3.4-4.8); CREATININE 3.87 mg/dL (0.55-1.30); TOTAL BILIRUBIN 0.6 mg/dL (0.0-1.0)
[2020-07-26 10:27] LABS: CALCIUM 6.5 mg/dL (8.4-11.0); POTASSIUM 6.5 mmol/L (3.5-5.1)
[2020-07-26 14:33] LABS: CORRECTED WHITE BLOOD COUNT 14.8 K/uL (4.5-11.0)
[2020-07-26 14:34] LABS: ATYPICAL LYMPHOCYTES % 1 % (0-0); BAND % (MANUAL) 16 % (0-6); BASOPHILS % (MANUAL) 0 % (0-2); EOSINOPHILS % (MANUAL) 0 % (0-7); LYMPHOCYTES % (MANUAL) 5 % (20-46); METAMYELOCYTES % 3 % (0-0); MONOCYTES % (MANUAL) 3 % (0-11)
== END 2020-07-26 08:20 | disposition expired | DRG 870 ==
LOC: SED 14:53 → STU 18:00 → SIC 07-12 18:54
PROVIDERS: ADMIT Family Medicine; ATTEND Family Medicine
PROC: XW13325 Transfusion of Convalescent Plasma (Nonautologous) into Peripheral Vein, Percutaneous Approach, New Technology Group 5 (ICD-10-PCS; 2020-06-28)
PROC: XW033E5 Introduction of Remdesivir Anti-infective into Peripheral Vein, Percutaneous Approach, New Technology Group 5 (ICD-10-PCS; 2020-06-30)
PROC: 5A09357 Assistance with Respiratory Ventilation, Less than 24 Consecutive Hours, Continuous Positive Airway Pressure (ICD-10-PCS; 2020-06-30)
PROC: 5A09357 Assistance with Respiratory Ventilation, Less than 24 Consecutive Hours, Continuous Positive Airway Pressure (ICD-10-PCS; 2020-07-01)
PROC: 5A09357 Assistance with Respiratory Ventilation, Less than 24 Consecutive Hours, Continuous Positive Airway Pressure (ICD-10-PCS; 2020-07-02)
PROC: 5A09457 Assistance with Respiratory Ventilation, 24-96 Consecutive Hours, Continuous Positive Airway Pressure (ICD-10-PCS; 2020-07-03)
PROC: 5A1955Z Respiratory Ventilation, Greater than 96 Consecutive Hours (ICD-10-PCS; principal; 2020-07-12)
PROC: 0BH17EZ Insertion of Endotracheal Airway into Trachea, Via Natural or Artificial Opening (ICD-10-PCS; 2020-07-12)
PROC: 02H633Z Insertion of Infusion Device into Right Atrium, Percutaneous Approach (ICD-10-PCS; 2020-07-15)
PROC: B548ZZA Ultrasonography of Superior Vena Cava, Guidance (ICD-10-PCS; 2020-07-15)
PROC: 30233N1 Transfusion of Nonautologous Red Blood Cells into Peripheral Vein, Percutaneous Approach (ICD-10-PCS; 2020-07-19)
PROC: 5A09557 Assistance with Respiratory Ventilation, Greater than 96 Consecutive Hours, Continuous Positive Airway Pressure (ICD-10-PCS; 2020-07-19)
DX: A41.9 Sepsis, unspecified organism (principal); U07.1 COVID-19; J12.82 Pneumonia due to coronavirus disease 2019; J96.01 Acute respiratory failure with hypoxia; J96.02 Acute respiratory failure with hypercapnia; K72.00 Acute and subacute hepatic failure without coma; N17.0 Acute kidney failure with tubular necrosis; R65.21 Severe sepsis with septic shock; B49 Unspecified mycosis; E87.2 Acidosis; I47.1 Supraventricular tachycardia; I48.92 Unspecified atrial flutter; K92.2 Gastrointestinal hemorrhage, unspecified; D64.9 Anemia, unspecified; E11.65 Type 2 diabetes mellitus with hyperglycemia; E66.9 Obesity, unspecified; E78.5 Hyperlipidemia, unspecified; Z66 Do not resuscitate; E87.5 Hyperkalemia; I10 Essential (primary) hypertension; I48.91 Unspecified atrial fibrillation; Z87.19 Personal history of other diseases of the digestive system; Z91.19 Patient's noncompliance with other medical treatment and regimen; Z93.1 Gastrostomy status; Z68.34 Body mass index [BMI] 34.0-34.9, adult
CPT/HCPCS: 36415; 36600; 71045; 80048; 80053; 80061; 80076; 82550-TC; 82607; 82728; 82746; 82803-TC; 82962; 83010; 83540-TC; 83550-TC; 83605; 83615-TC; 83735-TC; 83880; 84100-TC; 84484; 85007; 85025; 85027; 85044-TC; 85379; 85384-TC; 85610-TC; 85730-TC; 86140; 86886; 86900; 86901; 86920; 87040-TC; 87070-TC; 87086; 87205-TC; 90935; 90937; 92950; 93005; 94002; 94003; 94640; 94660; 96365; 96375; 99291; A6209; C1751; C9113; G0378; J0153; J0456; J0610; J0692; J0696; J1030; J1100; J1265; J1450; J1642; J1644; J1650; J1815; J2060; J2248; J2270; J2370; J2543; J2704; J3480; J3490; J7030; J7040; J7050; J7060; P9017; P9021; P9046